=== PATIENT | male | born 1950 | race Caucasian/White ===

== ENCOUNTER 2017-09-29 12:42 | Inpatient (IN) | payer MEDICARE ==
--- NOTE | 2017-09-29 13:11 | EDM.PDOC ---
ED HPI GENERAL MEDICAL PROBLEM - General Chief Complaint: Respiratory Problem Stated Complaint: SOB, cough, cold sx Time Seen by Provider: 09/29/17 13:00 Source of Information: Reports: Patient History Limitations: Reports: No Limitations - History of Present Illness INITIAL COMMENTS - FREE TEXT/NARRATIVE: Ken is a pleasant 67 year old male with PMH of hypertension, who presents to the ED with c/o cough, fever, and shortness of breath. He reports that the past few days he has had a productive cough. Yesterday he did have a fever, as high as 102.6 deg F. Did have some chills at that time. Fever did improve with ibuprofen. He denies any fever today, but reports his shortness of breath seems to be worsening. He does admit to smoking 1 ppd for the past 50 years. Reports he has never formally been told he has COPD. At baseline, he denies shortness of breath at rest, but does have some dyspnea with exertion. He denies any chronic cough. Does also c/o a slight headache. He also reports he has not been eating or drinking much as he doesn't have much of an appetite. Denies any chest pain, dizziness, abdominal pain, N/V/D, urinary symptoms. ROS otherwise negative. He reports that he did take some Delsyn cough medication and benadryl , but they have not provided him any relief. Onset Date: 09/25/17 Duration: Getting Worse Location: Reports: Chest Improves with: Reports: None Worsens with: Reports: None Associated Symptoms: Reports: cough w sputum, Fever/Chills, Headaches, Loss of Appetite, Shortness of Breath, Weakness. Denies: Confusion, Chest Pain, Diaphoresis, Malaise, Nausea/Vomiting, Rash, Seizure, Syncope - Related Data Allergies Allergy/AdvReac Type Severity Reaction Status Date / Time No Known Allergies Allergy Verified 09/29/17 12:48 Home Meds: Home Meds Albuterol/Ipratropium [DuoNeb 3.0-0.5 MG/3 ML] 3 ml INH QID #30 neb 09/29/17 [Rx ] Allopurinol [Zyloprim] 300 mg PO DAILY 09/29/17 [History] Doxycycline Monohydrate [Avidoxy] 100 mg PO BID 7 Days #14 tablet 09/29/17 [Rx] Hydrochlorothiazide 12.5 mg PO DAILY 09/29/17 [History] Potassium Chloride [Klor-Con M20] 20 meq PO DAILY #30 tab.er 09/29/17 [Rx] Prednisone [IMW: predniSONE] 40 mg PO WITHBREAKFAST 5 Days #10 tab 09/29/17 [Rx] amLODIPine [Norvasc] 5 mg PO DAILY 09/29/17 [History] Past Medical History HEENT History: Reports: None Cardiovascular History: Reports: Hypertension Respiratory History: Reports: None Gastrointestinal History: Reports: None Genitourinary History: Reports: None Musculoskeletal History: Reports: Gout Neurological History: Reports: None Psychiatric History: Reports: None Endocrine/Metabolic History: Reports: None Hematologic History: Reports: None Immunologic History: Reports: None Oncologic (Cancer) History: Reports: None Dermatologic History: Reports: None - Past Surgical History Head Surgeries/Procedures: Reports: None HEENT Surgical History: Reports: None Cardiovascular Surgical History: Reports: None GI Surgical History: Reports: Hernia Repair/Other Male Surgical History: Reports: None Endocrine Surgical History: Reports: None Neurological Surgical History: Reports: None Musculoskeletal Surgical History: Reports: None Oncologic Surgical History: Reports: None Dermatological Surgical History: Reports: None Social & Family History - Tobacco Use Smoking Status *Q: Current Every Day Smoker Years of Tobacco use: 53 Packs/Tins Daily: 1 ED ROS GENERAL - Review of Systems Review Of Systems: ROS reveals no pertinent complaints other than HPI. Constitutional: Reports: Fever, Chills, Weakness, Fatigue, Decreased Appetite HEENT: Reports: Rhinitis, Sinus Problem. Denies: Ear Pain Respiratory: Reports: Shortness of Breath, Wheezing, Cough, Sputum. Denies: Pleuritic Chest Pain, Hemoptysis Cardiovascular: Reports: Dyspnea on Exertion. Denies: Chest Pain, Lightheadedness Endocrine: Reports: Fatigue GI/Abdominal: Reports: Decreased Appetite. Denies: Abdominal Pain, Diarrhea, Nausea, Vomiting : Reports: No Symptoms. Denies: Dysuria, Frequency, Urgency Musculoskeletal: Reports: No Symptoms Skin: Reports: No Symptoms Neurological: Reports: Headache. Denies: Confusion, Dizziness Psychiatric: Reports: No Symptoms Hematologic/Lymphatic: Reports: No Symptoms Immunologic: Reports: No Symptoms ED EXAM, GENERAL - Physical Exam Exam: See Below Exam Limited By: No Limitations General Appearance: Alert, WD/WN, No Apparent Distress Eye Exam: Bilateral Eye: EOMI, Normal Fundi, Normal Inspection, PERRL Ears: Normal External Exam, Normal Canal, Hearing Grossly Normal, Normal TMs Nose: Nasal Swelling, Nasal Drainage, Clear Rhinorrhea Throat/Mouth: Normal Inspection, Normal Lips, Normal Teeth, Normal Gums, Normal Oropharynx, Normal Voice, No Airway Compromise Head: Atraumatic, Normocephalic Neck: Normal Inspection, Supple, Non-Tender, Full Range of Motion Respiratory/Chest: No Respiratory Distress, No Accessory Muscle Use, Decreased Breath Sounds, Crackles, Wheezing, Prolonged Expiration Cardiovascular: Normal Peripheral Pulses, Regular Rate, Rhythm, No Edema, No Gallop, No JVD, No Murmur, No Rub Extremities: Normal Inspection, Normal Range of Motion, Non-Tender, Normal Capillary Refill, No Pedal Edema Neurological: Alert, Oriented, CN II-XII Intact, Normal Cognition, Normal Gait, Normal Reflexes, No Motor/Sensory Deficits Psychiatric: Normal Affect, Normal Mood Skin Exam: Warm, Dry, Intact, Normal Color, No Rash Lymphatic: No Adenopathy Course - Vital Signs Last Recorded V/S: Last Vital Signs Temp 98.8 F 09/29/17 12:49 Pulse 91 09/29/17 12:49 Resp 20 09/29/17 12:49 BP 162/99 H 09/29/17 12:49 Pulse Ox 93 L 09/29/17 12:49 - Orders/Labs/Meds Orders: Active Orders 24 hr Category Date Time Status Patient Status Manage Transfer [TRANSFER] Routine ADT 09/29/17 19:06 Ordered RT Aerosol Therapy [RC] ASDIRECTED Care 09/29/17 13:21 Active RT Aerosol Therapy [RC] ASDIRECTED Care 09/29/17 15:10 Active Telemetry Monitoring [Cardiac Monitoring] [RC] . Care 09/29/17 13:47 Active DIRECTED Chest 2V [CR] Stat Exams 09/29/17 13:05 Taken Resuscitation Status Routine Resus Stat 09/29/17 19:07 Ordered EKG 12 Lead [EK] Routine Ther 09/29/17 13:48 Ordered Labs: Laboratory Tests 09/29/17 09/29/17 09/29/17 Range/Units 13:10 13:10 13:10 WBC 9.1 (5.0-10.0) 10^3/uL RBC 5.20 (4.50-6.00) 10^6/uL Hgb 17.0 (14.0-18.0) g/dL Hct 48.0 (40.0-54.0) % MCV 92.3 (82.0-94.0) fL MCH 32.7 H (27.0-32.0) pg MCHC 35.4 (33.0-38.0) g/dL RDW Coeff of Spike 13.2 (11.0-15.0) % Plt Count 172 (150-400) 10^3/uL Neut % (Auto) 85.8 H (35-85) % Lymph % (Auto) 8.3 L (10-55) % [place] % (Auto) 5.8 (0-16) % Eos % (Auto) 0 (0-5) % Baso % (Auto) 0.1 (0-3) % Neut # (Auto) 7.81 H (1.80-7.00) 10^3/uL Lymph # (Auto) 0.76 L (1.00-4.80) 10^3/uL [place] # (Auto) 0.53 (0.00-0.80) 10^3/uL Eos # (Auto) 0.00 (0.00-0.45) 10^3/uL Baso # (Auto) 0.01 10^3/uL D-Dimer, Quantitative 0.64 H (0.00-0.50) Sodium (136-145) mEq/L Potassium (3.5-5.0) mEq/L Chloride (98-106) mEq/L Carbon Dioxide (21-32) mmol/L BUN (7-18) mg/dL Creatinine (0.7-1.3) mg/dL Est Cr Clr Drug Dosing mL/min Estimated GFR (MDRD) (>=60) mL/min Glucose (75-99) mg/dL Calcium (8.4-10.1) mg/dL Total Bilirubin (0.0-1.0) mg/dL AST (15-37) U/L ALT (12-78) U/L Alkaline Phosphatase (46-116) U/L Troponin I (0.00-0.06) ng/mL C-Reactive Protein 40.9 H (0.2-0.8) mg/dL NT-Pro-B Natriuret Pep (0-1000) pg/mL Total Protein (6.4-8.2) g/dL Albumin (3.4-5.0) g/dL 09/29/17 09/29/17 09/29/17 Range/Units 13:10 13:10 18:40 WBC (5.0-10.0) 10^3/uL RBC (4.50-6.00) 10^6/uL Hgb (14.0-18.0) g/dL Hct (40.0-54.0) % MCV (82.0-94.0) fL MCH (27.0-32.0) pg MCHC (33.0-38.0) g/dL RDW Coeff of Spike (11.0-15.0) % Plt Count (150-400) 10^3/uL Neut % (Auto) (35-85) % Lymph % (Auto) (10-55) % [place] % (Auto) (0-16) % Eos % (Auto) (0-5) % Baso % (Auto) (0-3) % Neut # (Auto) (1.80-7.00) 10^3/uL Lymph # (Auto) (1.00-4.80) 10^3/uL [place] # (Auto) (0.00-0.80) 10^3/uL Eos # (Auto) (0.00-0.45) 10^3/uL Baso # (Auto) 10^3/uL D-Dimer, Quantitative (0.00-0.50) Sodium 137 (136-145) mEq/L Potassium 2.3 L* D 2.9 L* D (3.5-5.0) mEq/L Chloride 94 L (98-106) mEq/L Carbon Dioxide 32 (21-32) mmol/L BUN 22 H D (7-18) mg/dL Creatinine 1.3 (0.7-1.3) mg/dL Est Cr Clr Drug Dosing 53.63 mL/min Estimated GFR (MDRD) 55 L (>=60) mL/min Glucose 113 H (75-99) mg/dL Calcium 8.8 (8.4-10.1) mg/dL Total Bilirubin 0.7 (0.0-1.0) mg/dL AST 43 H (15-37) U/L ALT 36 (12-78) U/L Alkaline Phosphatase 92 (46-116) U/L Troponin I < 0.017 (0.00-0.06) ng/mL C-Reactive Protein (0.2-0.8) mg/dL NT-Pro-B Natriuret Pep 271 (0-1000) pg/mL Total Protein 7.6 (6.4-8.2) g/dL Albumin 3.5 (3.4-5.0) g/dL Meds: Medications Discontinued Medications Generic Name Dose Route Start Last Admin Trade Name Freq PRN Reason Stop Dose Admin Albuterol/Ipratropium 3 ml 09/29/17 13:21 09/29/17 13:24 Duoneb 3.0-0.5 Mg/3 Ml NEB 09/29/17 13:22 3 ml ONETIME ONE Administration Albuterol/Ipratropium 3 ml 09/29/17 17:30 09/29/17 17:36 Duoneb 3.0-0.5 Mg/3 Ml NEB 09/29/17 17:31 3 ml ONETIME ONE Administration Ceftriaxone Sodium 1 gm 09/29/17 15:04 09/29/17 16:32 Rocephin IVPUSH 09/29/17 15:05 1 gm ONETIME ONE Administration Potassium Chloride 40 meq/ 100 mls @ 25 mls/hr 09/29/17 13:47 09/29/17 14:28 Premix IV 09/29/17 17:46 25 mls/hr ONETIME ONE Administration Sodium Chloride 1,000 mls @ 250 mls/hr 09/29/17 13:47 09/29/17 14:30 Normal Saline IV 09/29/17 17:46 250 mls/hr ONETIME ONE Administration Methylprednisolone Sodium Succinate 125 mg 09/29/17 15:15 Solu-Medrol IVPUSH STAT MELINA Methylprednisolone Sodium Succinate 125 mg 09/29/17 16:30 09/29/17 16:32 Solu-Medrol IVPUSH 09/29/17 16:31 125 mg STAT ONE Administration - Re-Assessments/Exams Free Text/Narrative Re-Assessment/Exam: 09/29/17 1400 Discussed lab results and CXR with patient. No obvious infiltrates on CXR. Does show hyperinflation suggestive of COPD. Will wait for final radiology report. WBC normal. Does have a critical potassium. BUN slightly elevated. CRP elevated to 40.9. Discussed that I would like to replace K with IV potassium. Will send down to same day for infusion. Patient and agreeable with plan. Patient does not wish to be admitted to hospital. Recheck K after infusion. K 2.9 after infusion. Discussed that I would prefer to keep him overnight and continue IVF with potassium and recheck in am. Patient agreed to be admitted. Will admit to observation. Patient's PCP is Sudhakar Gaines, so will admit to Dr. Alfonso. Recheck K in am. Departure - Departure Time of Disposition: 19:12 Disposition: Refer to Observation Condition: Fair Clinical Impression: COPD exacerbation, URI with cough and congestion, Hypokalemia - Discharge Information Prescriptions: Albuterol/Ipratropium [DuoNeb 3.0-0.5 MG/3 ML] 3 ml INH QID #30 neb Doxycycline Monohydrate [Avidoxy] 100 mg PO BID 7 Days #14 tablet Potassium Chloride [Klor-Con M20] 20 meq PO DAILY #30 tab.er Prednisone [IMW: predniSONE] 40 mg PO WITHBREAKFAST 5 Days #10 tab Instructions: Shortness of Breath, Adult, [id number], Chronic Obstructive Pulmonary Disease, [id number], Upper Respiratory Infection, Adult, Easy-to- Read Referrals: Kitty Gaines PA [Primary Care Provider] - Forms: ED Department Discharge - Problem List & Annotations (1) Hypertension SNOMED Code(s): 61622571 Code(s): I10 - ESSENTIAL (PRIMARY) HYPERTENSION Status: Acute Current Visit: Yes (2) COPD exacerbation SNOMED Code(s): 069338679 Code(s): J44.1 - CHRONIC OBSTRUCTIVE PULMONARY DISEASE W (ACUTE) EXACERBATION Status: Acute Current Visit: Yes (3) URI with cough and congestion SNOMED Code(s): 76079831 Code(s): J06.9 - ACUTE UPPER RESPIRATORY INFECTION, UNSPECIFIED Status: Acute Current Visit: Yes (4) Hypokalemia SNOMED Code(s): 19984397 Code(s): E87.6 - HYPOKALEMIA Status: Acute Current Visit: Yes - Problem List Review Problem List Initiated/Reviewed/Updated: Yes - My Orders Last 24 Hours: My Active Orders 09/29/17 13:05 Chest 2V [CR] Stat 09/29/17 13:21 RT Aerosol Therapy [RC] ASDIRECTED 09/29/17 13:47 Telemetry Monitoring [Cardiac Monitoring] [RC] . DIRECTED 09/29/17 13:48 EKG 12 Lead [EK] Routine 09/29/17 15:10 RT Aerosol Therapy [RC] ASDIRECTED 09/29/17 19:06 Patient Status Manage Transfer [TRANSFER] Routine 09/29/17 19:07 Resuscitation Status Routine - Assessment/Plan Admission H&P: Please use this note as an admission H&P Last 24 Hours: My Active Orders 09/29/17 13:05 Chest 2V [CR] Stat 09/29/17 13:21 RT Aerosol Therapy [RC] ASDIRECTED 09/29/17 13:47 Telemetry Monitoring [Cardiac Monitoring] [RC] . DIRECTED 09/29/17 13:48 EKG 12 Lead [EK] Routine 09/29/17 15:10 RT Aerosol Therapy [RC] ASDIRECTED 09/29/17 19:06 Patient Status Manage Transfer [TRANSFER] Routine 09/29/17 19:07 Resuscitation Status Routine Assessment:: COPD Exacerbation Hypokalemia HTN URI Plan: Admit to observation under Dr. Alfonso Cardiac monitoring IVF with KCL Duonebs Steroids IV Rocephin Recheck labs in am
[2017-09-29] MEDS ORDERED: Albuterol/Ipratropium 3.0-0.5 MG/3 ML Neb Soln NEB ONE ×2 (13:21→17:30)
[2017-09-29 13:39] LABS: CHLORIDE,CL 94 mEq/L (98-106); SODIUM,NA 137 mEq/L (136-145)
[2017-09-29] MEDS ORDERED: Sodium Chloride 0.9% 1,000 ML IV ONE ×2 (13:47→19:28)
[2017-09-29] MEDS ORDERED: Potassium Chloride 40 MEQ in Premix Bag 1 BAG IV ONE ×2 (13:47→19:28)
[2017-09-29] MEDS ORDERED: cefTRIAXone 1 GM Vial IVPUSH ONE (15:04)
[2017-09-29] MEDS ORDERED: methylPREDNISolone Sodium Succinate 125 MG/2 ML SDV IVPUSH SCH (15:15)
[2017-09-29] MEDS ORDERED: methylPREDNISolone Sodium Succinate 125 MG/2 ML SDV IVPUSH ONE (16:30)
[2017-09-29] MEDS ORDERED: Magnesium Hydroxide 400 MG/5 ML Susp 30 ML Cup PO PRN (19:28)
[2017-09-29] MEDS ORDERED: Ondansetron 4 MG/2 ML SDV IV PRN (19:28)
[2017-09-29] MEDS ORDERED: Temazepam 15 MG Cap PO PRN (19:28)
[2017-09-29] MEDS ORDERED: Acetaminophen 325 MG Tab PO PRN (19:28)
[2017-09-29] MEDS: Albuterol/Ipratropium 3.0-0.5 MG/3 ML Neb Soln NEB SCH (19:49)
[2017-09-29] MEDS: methylPREDNISolone Sodium Succinate 125 MG/2 ML SDV IVPUSH SCH (21:06)
[2017-09-30] MEDS: methylPREDNISolone Sodium Succinate 125 MG/2 ML SDV IVPUSH SCH ×2 (07:38→19:46)
[2017-09-30] MEDS: cefTRIAXone 1 GM Vial IVPUSH SCH (07:40)
[2017-09-30] MEDS: Albuterol/Ipratropium 3.0-0.5 MG/3 ML Neb Soln NEB SCH ×4 (07:40→19:46)
[2017-09-30 07:41] LABS: CHLORIDE,CL 100 mEq/L (98-106); SODIUM,NA 140 mEq/L (136-145)
[2017-09-30] MEDS ORDERED: Potassium Chloride 40 MEQ in Premix Bag 1 BAG IV ONE (08:14)
[2017-09-30] MEDS: Nicotine 14 MG/24 Hr Patch TRDERM SCH (09:18)
[2017-09-30] MEDS: Potassium Chloride 10 MEQ Tab.ER PO SCH (09:28)
[2017-09-30] MEDS ORDERED: Sodium Chloride 0.9% 250 ML ONE (09:32)
[2017-09-30] MEDS ORDERED: Sodium Chloride 0.9% 1,000 ML ONE (11:45)
--- NOTE | 2017-09-30 21:04 | PCM.PN ---
- General Info Date of Service: 09/30/17 Admission Dx/Problem (Free Text): COPD Exacerbation Hypokalemia Functional Status: Reports: Pain Controlled, Tolerating Diet, Ambulating - Review of Systems General: Reports: Fatigue. Denies: Fever, Weakness HEENT: Reports: No Symptoms Pulmonary: Reports: Shortness of Breath, Cough. Denies: Sputum Cardiovascular: Denies: Chest Pain, Edema Gastrointestinal: Denies: Abdominal Pain Genitourinary: Reports: No Symptoms Musculoskeletal: Reports: No Symptoms Skin: Reports: No Symptoms Neurological: Reports: No Symptoms - Patient Data Vitals - Most Recent: Last Vital Signs Temp 98.3 F 09/30/17 20:00 Pulse 80 09/30/17 20:00 Resp 20 09/30/17 20:00 BP 168/79 H 09/30/17 20:00 Pulse Ox 98 09/30/17 20:00 Weight - Most Recent: 163 lb 1.6 oz Lab Results Last 24 Hours: Laboratory Results - last 24 hr 09/30/17 09/30/17 09/30/17 Range/Units 06:56 07:17 14:50 Sodium 140 (136-145) mEq/L Potassium 2.7 L* 3.0 L (3.5-5.0) mEq/L Chloride 100 (98-106) mEq/L Carbon Dioxide 30 (21-32) mmol/L BUN 21 H (7-18) mg/dL Creatinine 1.1 (0.7-1.3) mg/dL Est Cr Clr Drug Dosing 63.38 mL/min Estimated GFR (MDRD) > 60 (>=60) mL/min Glucose 151 H D (75-99) mg/dL Calcium 8.1 L (8.4-10.1) mg/dL Magnesium 2.5 H (1.8-2.4) mg/dL C-Reactive Protein 23.3 H (0.2-0.8) mg/dL Med Orders - Current: Current Medications Acetaminophen (Tylenol) 650 mg PO Q4H PRN PRN Reason: Pain (Mild 1-3)/fever Albuterol/Ipratropium (Duoneb 3.0-0.5 Mg/3 Ml) 3 ml NEB QIDRT MELINA Last Admin: 09/30/17 19:46 Dose: 3 ml Ceftriaxone Sodium (Rocephin) 1 gm IVPUSH Q24H [facility] Last Admin: 09/30/17 07:40 Dose: 1 gm Magnesium Hydroxide (Milk Of Magnesia) 30 ml PO Q12H PRN PRN Reason: Constipation Methylprednisolone Sodium Succinate (Solu-Medrol) 62.5 mg IVPUSH Q12H [facility] Last Admin: 09/30/17 19:46 Dose: 62.5 mg Nicotine (Habitrol) 14 mg TRDERM DAILY [facility] Last Admin: 09/30/17 09:18 Dose: 14 mg Ondansetron HCl (Zofran) 4 mg IV Q6H PRN PRN Reason: Nausea/Vomiting Potassium Chloride (Klor-Con 10) 20 meq PO DAILY [facility] Last Admin: 09/30/17 09:28 Dose: 20 meq Temazepam (Restoril) 15 mg PO BEDTIME PRN PRN Reason: Sleep Discontinued Medications Albuterol/Ipratropium (Duoneb 3.0-0.5 Mg/3 Ml) 3 ml NEB ONETIME ONE Stop: 09/29/17 13:22 Last Admin: 09/29/17 13:24 Dose: 3 ml Albuterol/Ipratropium (Duoneb 3.0-0.5 Mg/3 Ml) 3 ml NEB ONETIME ONE Stop: 09/29/17 17:31 Last Admin: 09/29/17 17:36 Dose: 3 ml Ceftriaxone Sodium (Rocephin) 1 gm IVPUSH ONETIME ONE Stop: 09/29/17 15:05 Last Admin: 09/29/17 16:32 Dose: 1 gm Potassium Chloride 40 meq/ (Premix) 100 mls @ 25 mls/hr IV ONETIME ONE Stop: 09/29/17 17:46 Last Admin: 09/29/17 14:28 Dose: 25 mls/hr Sodium Chloride (Normal Saline) 1,000 mls @ 250 mls/hr IV ONETIME ONE Stop: 09/29/17 17:46 Last Admin: 09/29/17 14:30 Dose: 250 mls/hr Potassium Chloride 40 meq/ (Premix) 100 mls @ 10 mls/hr IV ONETIME ONE Stop: 09/30/17 05:27 Last Admin: 09/29/17 19:49 Dose: 10 mls/hr Sodium Chloride (Normal Saline) 1,000 mls @ 100 mls/hr IV ONETIME ONE Stop: 09/30/17 05:27 Last Admin: 09/29/17 19:50 Dose: 100 mls/hr Potassium Chloride 40 meq/ (Premix) 100 mls @ 25 mls/hr IV ONETIME ONE Stop: 09/30/17 12:13 Last Admin: 09/30/17 09:19 Dose: 25 mls/hr Sodium Chloride (Normal Saline) Confirm Administered Dose 250 mls @ as directed .ROUTE .STK-MED ONE Stop: 09/30/17 09:33 Last Admin: 09/30/17 09:29 Dose: 25 mls/hr Sodium Chloride (Normal Saline) Confirm Administered Dose 1,000 mls @ as directed .ROUTE .STK-MED ONE Stop: 09/30/17 11:46 Last Admin: 09/30/17 11:00 Dose: Not Given Methylprednisolone Sodium Succinate (Solu-Medrol) 125 mg IVPUSH STAT MELINA Methylprednisolone Sodium Succinate (Solu-Medrol) 125 mg IVPUSH STAT ONE Stop: 09/29/17 16:31 Last Admin: 09/29/17 16:32 Dose: 125 mg - Exam Quality Assessment: No: Supplemental Oxygen General: Alert, Oriented HEENT: Mucous Membr. Moist/[place] Neck: Supple Lungs: Decreased Breath Sounds, Wheezing Cardiovascular: Regular Rate, Regular Rhythm GI/Abdominal Exam: Normal Bowel Sounds, Soft, Non-Tender Extremities: Normal Inspection, No Pedal Edema Skin: Warm, Dry Neurological: No New Focal Deficit - Problem List & Annotations (1) Hypokalemia SNOMED Code(s): 75811418 Code(s): E87.6 - HYPOKALEMIA Status: Acute Priority: High Current Visit : Yes (2) COPD exacerbation SNOMED Code(s): 976770924 Code(s): J44.1 - CHRONIC OBSTRUCTIVE PULMONARY DISEASE W (ACUTE) EXACERBATION Status: Acute Priority: High Current Visit: Yes (3) Hypertension SNOMED Code(s): 54983117 Code(s): I10 - ESSENTIAL (PRIMARY) HYPERTENSION Status: Acute Priority: High Current Visit: Yes (4) URI with cough and congestion SNOMED Code(s): 05715540 Code(s): J06.9 - ACUTE UPPER RESPIRATORY INFECTION, UNSPECIFIED Status: Acute Priority: High Current Visit: Yes - Problem List Review Problem List Initiated/Reviewed/Updated: Yes - My Orders Last 24 Hours: My Active Orders 09/30/17 08:15 Potassium Chloride [Klor-Con 10] 20 meq PO DAILY 09/30/17 09:00 Nicotine [Habitrol] 14 mg TRDERM DAILY 10/01/17 05:11 BASIC METABOLIC PANEL,BMP [CHEM] AM C-REACTIVE PROTEIN [CHEM] AM - Assessment Assessment:: URI with COPD Exacerbation Hypokalemia - Plan Plan:: Patient admits that his breathing is better today, still coughing yet. Nonproductive. Oxygen sats are maintaining over 90%. Afebrile. Blood pressure stable this am with HCTZ on hold. Potassium still low at 2.7. CRP is improved , down to 22. Patient does admit he is somewhat anxious without his cigarettes. Is agreeable to a Nicotine patch. Will continue with IV antibiotics. DuoNebs. Will do another potassium bump now , start oral potassium as well. Repeat the labs later today. Possible discharge later today or in am.
[2017-10-01 07:32] LABS: CHLORIDE,CL 103 mEq/L (98-106); SODIUM,NA 142 mEq/L (136-145)
[2017-10-01] MEDS: Albuterol/Ipratropium 3.0-0.5 MG/3 ML Neb Soln NEB SCH ×4 (07:52→20:30)
[2017-10-01] MEDS: methylPREDNISolone Sodium Succinate 125 MG/2 ML SDV IVPUSH SCH ×2 (07:54→20:30)
[2017-10-01] MEDS: cefTRIAXone 1 GM Vial IVPUSH SCH (07:58)
[2017-10-01] MEDS: Nicotine 14 MG/24 Hr Patch TRDERM SCH (08:05)
[2017-10-01] MEDS: Potassium Chloride 10 MEQ Tab.ER PO SCH ×2 (08:05→20:31)
[2017-10-01] MEDS ORDERED: Potassium Chloride 40 MEQ in Premix Bag 1 BAG IV ONE (08:23)
[2017-10-01] MEDS ORDERED: Sodium Chloride 0.9% 1,000 ML IV ONE (09:00)
[2017-10-01] MEDS ORDERED: Allopurinol 300 MG Tab ONE (09:41)
[2017-10-01] MEDS ORDERED: amLODIPine 2.5 MG Tab ONE (09:42)
[2017-10-01] MEDS ORDERED: Sodium Chloride 0.9% 1,000 ML ONE (09:42)
[2017-10-01] MEDS: amLODIPine 2.5 MG Tab PO SCH (09:53)
[2017-10-01] MEDS: Allopurinol 300 MG Tab PO SCH (09:54)
[2017-10-01] MEDS: guaiFENesin 200 MG Tab PO SCH ×2 (14:02→20:30)
[2017-10-01] MEDS ORDERED: guaiFENesin 200 MG Tab ONE ×2 (14:15→19:18)
--- NOTE | 2017-10-01 22:05 | PCM.PN ---
- General Info Date of Service: 10/01/17 Admission Dx/Problem (Free Text): COPD Exacerbation Hypokalemia Functional Status: Reports: Pain Controlled, Tolerating Diet, Ambulating - Review of Systems General: Reports: Fatigue. Denies: Fever HEENT: Reports: Rhinitis Pulmonary: Reports: Shortness of Breath, Cough, Wheezing. Denies: Sputum Cardiovascular: Denies: Chest Pain, Edema, Lightheadedness Gastrointestinal: Reports: Vomiting. Denies: Abdominal Pain, Nausea Genitourinary: Reports: No Symptoms Musculoskeletal: Reports: No Symptoms Skin: Denies: No Symptoms Neurological: Reports: No Symptoms - Patient Data Vitals - Most Recent: Last Vital Signs Temp 97.8 F 10/01/17 20:00 Pulse 65 10/01/17 20:00 Resp 18 10/01/17 20:00 BP 159/81 H 10/01/17 20:00 Pulse Ox 98 10/01/17 20:00 Weight - Most Recent: 163 lb 1.6 oz Lab Results Last 24 Hours: Laboratory Results - last 24 hr 10/01/17 Range/Units 05:11 Sodium 142 (136-145) mEq/L Potassium 2.8 L* (3.5-5.0) mEq/L Chloride 103 (98-106) mEq/L Carbon Dioxide 29 (21-32) mmol/L BUN 22 H (7-18) mg/dL Creatinine 0.9 (0.7-1.3) mg/dL Est Cr Clr Drug Dosing 77.46 mL/min Estimated GFR (MDRD) > 60 (>=60) mL/min Glucose 145 H (75-99) mg/dL Calcium 8.0 L (8.4-10.1) mg/dL C-Reactive Protein 11.5 H (0.2-0.8) mg/dL Med Orders - Current: Current Medications Acetaminophen (Tylenol) 650 mg PO Q4H PRN PRN Reason: Pain (Mild 1-3)/fever Albuterol/Ipratropium (Duoneb 3.0-0.5 Mg/3 Ml) 3 ml NEB QIDRT [facility] Last Admin: 10/01/17 20:30 Dose: 3 ml Allopurinol (Zyloprim) 300 mg PO DAILY [facility] Last Admin: 10/01/17 09:54 Dose: 300 mg Amlodipine Besylate (Norvasc) 5 mg PO DAILY [facility] Last Admin: 10/01/17 09:53 Dose: 5 mg Ceftriaxone Sodium (Rocephin) 1 gm IVPUSH Q24H [facility] Last Admin: 10/01/17 07:58 Dose: 1 gm Guaifenesin (Organ-I Nr) 200 mg PO TID [facility] Last Admin: 10/01/17 20:30 Dose: 200 mg Magnesium Hydroxide (Milk Of Magnesia) 30 ml PO Q12H PRN PRN Reason: Constipation Methylprednisolone Sodium Succinate (Solu-Medrol) 62.5 mg IVPUSH Q12H [facility] Last Admin: 10/01/17 20:30 Dose: 62.5 mg Nicotine (Habitrol) 14 mg TRDERM DAILY [facility] Last Admin: 10/01/17 08:05 Dose: 14 mg Ondansetron HCl (Zofran) 4 mg IV Q6H PRN PRN Reason: Nausea/Vomiting Potassium Chloride (Klor-Con 10) 20 meq PO BID [facility] Last Admin: 10/01/17 20:31 Dose: 20 meq Temazepam (Restoril) 15 mg PO BEDTIME PRN PRN Reason: Sleep Discontinued Medications Albuterol/Ipratropium (Duoneb 3.0-0.5 Mg/3 Ml) 3 ml NEB ONETIME ONE Stop: 09/29/17 13:22 Last Admin: 09/29/17 13:24 Dose: 3 ml Albuterol/Ipratropium (Duoneb 3.0-0.5 Mg/3 Ml) 3 ml NEB ONETIME ONE Stop: 09/29/17 17:31 Last Admin: 09/29/17 17:36 Dose: 3 ml Ceftriaxone Sodium (Rocephin) 1 gm IVPUSH ONETIME ONE Stop: 09/29/17 15:05 Last Admin: 09/29/17 16:32 Dose: 1 gm Potassium Chloride 40 meq/ (Premix) 100 mls @ 25 mls/hr IV ONETIME ONE Stop: 09/29/17 17:46 Last Admin: 09/29/17 14:28 Dose: 25 mls/hr Sodium Chloride (Normal Saline) 1,000 mls @ 250 mls/hr IV ONETIME ONE Stop: 09/29/17 17:46 Last Admin: 09/29/17 14:30 Dose: 250 mls/hr Potassium Chloride 40 meq/ (Premix) 100 mls @ 10 mls/hr IV ONETIME ONE Stop: 09/30/17 05:27 Last Admin: 09/29/17 19:49 Dose: 10 mls/hr Sodium Chloride (Normal Saline) 1,000 mls @ 100 mls/hr IV ONETIME ONE Stop: 09/30/17 05:27 Last Admin: 09/29/17 19:50 Dose: 100 mls/hr Potassium Chloride 40 meq/ (Premix) 100 mls @ 25 mls/hr IV ONETIME ONE Stop: 09/30/17 12:13 Last Admin: 09/30/17 09:19 Dose: 25 mls/hr Sodium Chloride (Normal Saline) Confirm Administered Dose 250 mls @ as directed .ROUTE .STK-MED ONE Stop: 09/30/17 09:33 Last Admin: 09/30/17 09:29 Dose: 25 mls/hr Sodium Chloride (Normal Saline) Confirm Administered Dose 1,000 mls @ as directed .ROUTE .STK-MED ONE Stop: 09/30/17 11:46 Last Admin: 09/30/17 11:00 Dose: Not Given Potassium Chloride 40 meq/ (Premix) 100 mls @ 25 mls/hr IV ONETIME ONE Stop: 10/01/17 12:22 Last Admin: 10/01/17 09:48 Dose: 25 mls/hr Sodium Chloride (Normal Saline) 1,000 mls @ 125 mls/hr IV ONETIME ONE Stop: 10/01/17 16:59 Last Admin: 10/01/17 09:47 Dose: 125 mls/hr Methylprednisolone Sodium Succinate (Solu-Medrol) 125 mg IVPUSH STAT [facility] Methylprednisolone Sodium Succinate (Solu-Medrol) 125 mg IVPUSH STAT ONE Stop: 09/29/17 16:31 Last Admin: 09/29/17 16:32 Dose: 125 mg Potassium Chloride (Klor-Con 10) 20 meq PO DAILY [facility] Last Admin: 10/01/17 08:05 Dose: 20 meq - Exam General: Alert, Oriented HEENT: Mucous Membr. Moist/[place] Neck: Supple Lungs: Decreased Breath Sounds, Wheezing Cardiovascular: Regular Rate, Regular Rhythm GI/Abdominal Exam: Normal Bowel Sounds, Soft, Non-Tender Extremities: Normal Inspection, No Pedal Edema Skin: Warm, Dry Neurological: No New Focal Deficit - Problem List & Annotations (1) Hypokalemia SNOMED Code(s): 83954170 Code(s): E87.6 - HYPOKALEMIA Status: Acute Priority: High Current Visit : Yes (2) COPD exacerbation SNOMED Code(s): 561523307 Code(s): J44.1 - CHRONIC OBSTRUCTIVE PULMONARY DISEASE W (ACUTE) EXACERBATION Status: Acute Priority: High Current Visit: Yes (3) Hypertension SNOMED Code(s): 44301339 Code(s): I10 - ESSENTIAL (PRIMARY) HYPERTENSION Status: Acute Priority: High Current Visit: Yes (4) URI with cough and congestion SNOMED Code(s): 97783056 Code(s): J06.9 - ACUTE UPPER RESPIRATORY INFECTION, UNSPECIFIED Status: Acute Priority: High Current Visit: Yes - Problem List Review Problem List Initiated/Reviewed/Updated: Yes - My Orders Last 24 Hours: My Active Orders 10/01/17 08:45 Allopurinol [Zyloprim] 300 mg PO DAILY amLODIPine [Norvasc] 5 mg PO DAILY 10/01/17 14:00 guaiFENesin [Organ-I NR] 200 mg PO TID 10/01/17 20:00 Potassium Chloride [Klor-Con 10] 20 meq PO BID 10/02/17 05:11 BASIC METABOLIC PANEL,BMP [CHEM] AM C-REACTIVE PROTEIN [CHEM] AM - Assessment Assessment:: URI with COPD Exacerbation Hypokalemia - Plan Plan:: Patient admits that his breathing is better today, still coughing yet. Nonproductive. Oxygen sats are maintaining over 90%. Afebrile. Blood pressure stable this am with HCTZ on hold. Potassium still low at 2.7. CRP is improved , down to 22. Patient does admit he is somewhat anxious without his cigarettes. Is agreeable to a Nicotine patch. Will continue with IV antibiotics. DuoNebs. Will do another potassium bump now , start oral potassium as well. Repeat the labs later today. Possible discharge later today or in am. 10-01-2017 Patient states more short of breath today, chest feels tight. Wheezing more. Oxygen sats remain stable in the higher 90s. He does state his cough is more dry today, unable to expectorate with cough. Potassium low yet today at 2.8. CRP has improved petar to 11 today. Blood pressure somewhat higher this am, 168/ 79. Will transfer to inpatient status for ongoing treatment of his lungs/COPD. Continue with IV antibiotics and nebs. Solu Medrol. Will give additional IV potassium today, increase KDUR to BID. Restart Amlodipine. Repeat labs in am.
[2017-10-02] MEDS ORDERED: Allopurinol 300 MG Tab ONE (06:44)
[2017-10-02] MEDS ORDERED: amLODIPine 2.5 MG Tab ONE (06:45)
[2017-10-02] MEDS ORDERED: guaiFENesin 200 MG Tab ONE (06:45)
[2017-10-02 07:39] LABS: CHLORIDE,CL 105 mEq/L (98-106); SODIUM,NA 143 mEq/L (136-145)
[2017-10-02] MEDS: methylPREDNISolone Sodium Succinate 125 MG/2 ML SDV IVPUSH SCH ×2 (07:52→20:57)
[2017-10-02] MEDS: cefTRIAXone 1 GM Vial IVPUSH SCH (07:53)
[2017-10-02] MEDS: Nicotine 14 MG/24 Hr Patch TRDERM SCH (07:53)
[2017-10-02] MEDS: Albuterol/Ipratropium 3.0-0.5 MG/3 ML Neb Soln NEB SCH ×4 (07:54→20:57)
[2017-10-02] MEDS: Allopurinol 300 MG Tab PO SCH (07:55)
[2017-10-02] MEDS: Potassium Chloride 10 MEQ Tab.ER PO SCH ×2 (07:55→20:56)
[2017-10-02] MEDS: guaiFENesin 200 MG Tab PO SCH ×3 (07:55→20:56)
[2017-10-02] MEDS: amLODIPine 2.5 MG Tab PO SCH (07:56)
--- NOTE | 2017-10-02 17:43 | PCM.PN ---
- General Info Date of Service: 10/02/17 Admission Dx/Problem (Free Text): COPD Exacerbation Hypokalemia Functional Status: Reports: Pain Controlled, Tolerating Diet, Ambulating - Review of Systems General: Reports: Fatigue. Denies: Fever, Weakness HEENT: Reports: Rhinitis Pulmonary: Reports: Shortness of Breath, Cough, Wheezing. Denies: Sputum Cardiovascular: Denies: Chest Pain, Edema, Lightheadedness Gastrointestinal: Denies: Abdominal Pain, Nausea, Vomiting Genitourinary: Reports: No Symptoms Musculoskeletal: Reports: No Symptoms Skin: Reports: No Symptoms Neurological: Reports: No Symptoms - Patient Data Vitals - Most Recent: Last Vital Signs Temp 97.2 F 10/02/17 08:00 Pulse 60 10/02/17 08:00 Resp 20 10/02/17 08:00 BP 150/72 H 10/02/17 08:00 Pulse Ox 96 10/02/17 08:00 Weight - Most Recent: 163 lb 1.6 oz Lab Results Last 24 Hours: Laboratory Results - last 24 hr 10/02/17 Range/Units 07:00 Sodium 143 (136-145) mEq/L Potassium 3.2 L (3.5-5.0) mEq/L Chloride 105 (98-106) mEq/L Carbon Dioxide 28 (21-32) mmol/L BUN 21 H (7-18) mg/dL Creatinine 0.9 (0.7-1.3) mg/dL Est Cr Clr Drug Dosing 77.46 mL/min Estimated GFR (MDRD) > 60 (>=60) mL/min Glucose 147 H (75-99) mg/dL Calcium 7.9 L (8.4-10.1) mg/dL C-Reactive Protein 5.1 H (0.2-0.8) mg/dL Med Orders - Current: Current Medications Acetaminophen (Tylenol) 650 mg PO Q4H PRN PRN Reason: Pain (Mild 1-3)/fever Albuterol/Ipratropium (Duoneb 3.0-0.5 Mg/3 Ml) 3 ml NEB QIDRT [facility] Last Admin: 10/02/17 16:32 Dose: 3 ml Allopurinol (Zyloprim) 300 mg PO DAILY [facility] Last Admin: 10/02/17 07:55 Dose: 300 mg Amlodipine Besylate (Norvasc) 5 mg PO DAILY [facility] Last Admin: 10/02/17 07:56 Dose: 5 mg Ceftriaxone Sodium (Rocephin) 1 gm IVPUSH Q24H [facility] Last Admin: 10/02/17 07:53 Dose: 1 gm Guaifenesin (Organ-I Nr) 200 mg PO TID [facility] Last Admin: 10/02/17 14:28 Dose: 200 mg Magnesium Hydroxide (Milk Of Magnesia) 30 ml PO Q12H PRN PRN Reason: Constipation Methylprednisolone Sodium Succinate (Solu-Medrol) 62.5 mg IVPUSH Q12H [facility] Last Admin: 10/02/17 07:52 Dose: 62.5 mg Nicotine (Habitrol) 14 mg TRDERM DAILY [facility] Last Admin: 10/02/17 07:53 Dose: 14 mg Ondansetron HCl (Zofran) 4 mg IV Q6H PRN PRN Reason: Nausea/Vomiting Potassium Chloride (Klor-Con 10) 20 meq PO BID [facility] Last Admin: 10/02/17 07:55 Dose: 20 meq Temazepam (Restoril) 15 mg PO BEDTIME PRN PRN Reason: Sleep Discontinued Medications Albuterol/Ipratropium (Duoneb 3.0-0.5 Mg/3 Ml) 3 ml NEB ONETIME ONE Stop: 09/29/17 13:22 Last Admin: 09/29/17 13:24 Dose: 3 ml Albuterol/Ipratropium (Duoneb 3.0-0.5 Mg/3 Ml) 3 ml NEB ONETIME ONE Stop: 09/29/17 17:31 Last Admin: 09/29/17 17:36 Dose: 3 ml Allopurinol (Zyloprim) Confirm Administered Dose 300 mg .ROUTE .STK-MED ONE Stop: 10/01/17 09:42 Last Admin: 10/02/17 10:54 Dose: Not Given Allopurinol (Zyloprim) Confirm Administered Dose 300 mg .ROUTE .STK-MED ONE Stop: 10/02/17 06:45 Last Admin: 10/02/17 10:54 Dose: Not Given Amlodipine Besylate (Norvasc) Confirm Administered Dose 5 mg .ROUTE .STK-MED ONE Stop: 10/01/17 09:43 Last Admin: 10/02/17 10:54 Dose: Not Given Amlodipine Besylate (Norvasc) Confirm Administered Dose 5 mg .ROUTE .STK-MED ONE Stop: 10/02/17 06:46 Last Admin: 10/02/17 10:54 Dose: Not Given Ceftriaxone Sodium (Rocephin) 1 gm IVPUSH ONETIME ONE Stop: 09/29/17 15:05 Last Admin: 09/29/17 16:32 Dose: 1 gm Guaifenesin (Organ-I Nr) Confirm Administered Dose 200 mg .ROUTE .STK-MED ONE Stop: 10/01/17 14:16 Last Admin: 10/02/17 10:54 Dose: Not Given Guaifenesin (Organ-I Nr) Confirm Administered Dose 200 mg .ROUTE .STK-MED ONE Stop: 10/01/17 19:19 Last Admin: 10/02/17 10:54 Dose: Not Given Guaifenesin (Organ-I Nr) Confirm Administered Dose 200 mg .ROUTE .STK-MED ONE Stop: 10/02/17 06:46 Last Admin: 10/02/17 10:55 Dose: Not Given Potassium Chloride 40 meq/ (Premix) 100 mls @ 25 mls/hr IV ONETIME ONE Stop: 09/29/17 17:46 Last Admin: 09/29/17 14:28 Dose: 25 mls/hr Sodium Chloride (Normal Saline) 1,000 mls @ 250 mls/hr IV ONETIME ONE Stop: 09/29/17 17:46 Last Admin: 09/29/17 14:30 Dose: 250 mls/hr Potassium Chloride 40 meq/ (Premix) 100 mls @ 10 mls/hr IV ONETIME ONE Stop: 09/30/17 05:27 Last Admin: 09/29/17 19:49 Dose: 10 mls/hr Sodium Chloride (Normal Saline) 1,000 mls @ 100 mls/hr IV ONETIME ONE Stop: 09/30/17 05:27 Last Admin: 09/29/17 19:50 Dose: 100 mls/hr Potassium Chloride 40 meq/ (Premix) 100 mls @ 25 mls/hr IV ONETIME ONE Stop: 09/30/17 12:13 Last Admin: 09/30/17 09:19 Dose: 25 mls/hr Sodium Chloride (Normal Saline) Confirm Administered Dose 250 mls @ as directed .ROUTE .STK-MED ONE Stop: 09/30/17 09:33 Last Admin: 09/30/17 09:29 Dose: 25 mls/hr Sodium Chloride (Normal Saline) Confirm Administered Dose 1,000 mls @ as directed .ROUTE .STK-MED ONE Stop: 09/30/17 11:46 Last Admin: 09/30/17 11:00 Dose: Not Given Potassium Chloride 40 meq/ (Premix) 100 mls @ 25 mls/hr IV ONETIME ONE Stop: 10/01/17 12:22 Last Admin: 10/01/17 09:48 Dose: 25 mls/hr Sodium Chloride (Normal Saline) 1,000 mls @ 125 mls/hr IV ONETIME ONE Stop: 10/01/17 16:59 Last Admin: 10/01/17 09:47 Dose: 125 mls/hr Sodium Chloride (Normal Saline) Confirm Administered Dose 1,000 mls @ as directed .ROUTE .STK-MED ONE Stop: 10/01/17 09:43 Last Admin: 10/02/17 10:54 Dose: Not Given Methylprednisolone Sodium Succinate (Solu-Medrol) 125 mg IVPUSH STAT [facility] Methylprednisolone Sodium Succinate (Solu-Medrol) 125 mg IVPUSH STAT ONE Stop: 09/29/17 16:31 Last Admin: 09/29/17 16:32 Dose: 125 mg Potassium Chloride (Klor-Con 10) 20 meq PO DAILY [facility] Last Admin: 10/01/17 08:05 Dose: 20 meq - Exam General: Alert, Oriented HEENT: Mucous Membr. Moist/[place] Neck: Supple Lungs: Decreased Breath Sounds, Wheezing Cardiovascular: Regular Rate, Regular Rhythm GI/Abdominal Exam: Normal Bowel Sounds, Soft, Non-Tender Extremities: Normal Inspection, No Pedal Edema Skin: Warm, Dry Neurological: No New Focal Deficit Psy/Mental Status: Anxious - Problem List & Annotations (1) Hypokalemia SNOMED Code(s): 37559661 Code(s): E87.6 - HYPOKALEMIA Status: Acute Priority: High Current Visit : Yes (2) COPD exacerbation SNOMED Code(s): 048877300 Code(s): J44.1 - CHRONIC OBSTRUCTIVE PULMONARY DISEASE W (ACUTE) EXACERBATION Status: Acute Priority: High Current Visit: Yes (3) Hypertension SNOMED Code(s): 48722182 Code(s): I10 - ESSENTIAL (PRIMARY) HYPERTENSION Status: Acute Priority: High Current Visit: Yes (4) URI with cough and congestion SNOMED Code(s): 75631071 Code(s): J06.9 - ACUTE UPPER RESPIRATORY INFECTION, UNSPECIFIED Status: Acute Priority: High Current Visit: Yes - Problem List Review Problem List Initiated/Reviewed/Updated: Yes - My Orders Last 24 Hours: My Active Orders 10/01/17 20:00 Potassium Chloride [Klor-Con 10] 20 meq PO BID 10/03/17 05:11 BASIC METABOLIC PANEL,BMP [CHEM] AM C-REACTIVE PROTEIN [CHEM] AM - Assessment Assessment:: URI with COPD Exacerbation Hypokalemia - Plan Plan:: Patient admits that his breathing is better today, still coughing yet. Nonproductive. Oxygen sats are maintaining over 90%. Afebrile. Blood pressure stable this am with HCTZ on hold. Potassium still low at 2.7. CRP is improved , down to 22. Patient does admit he is somewhat anxious without his cigarettes. Is agreeable to a Nicotine patch. Will continue with IV antibiotics. DuoNebs. Will do another potassium bump now , start oral potassium as well. Repeat the labs later today. Possible discharge later today or in am. 10-01-2017 Patient states more short of breath today, chest feels tight. Wheezing more. Oxygen sats remain stable in the higher 90s. He does state his cough is more dry today, unable to expectorate with cough. Potassium low yet today at 2.8. CRP has improved petar to 11 today. Blood pressure somewhat higher this am, 168/ 79. Will transfer to inpatient status for ongoing treatment of his lungs/COPD. Continue with IV antibiotics and nebs. Solu Medrol. Will give additional IV potassium today, increase KDUR to BID. Restart Amlodipine. Repeat labs in am. 10-02-2017 Patient relates he had a restless night, more trouble with shortness of breath. Seems better this am. Continues to have nonproductive cough. Admits to feeling more anxious today. Blood pressure mildly elevated at 150s/70s. Potassium improved today to 3.2. CRP decreased to 5.1. will continue with current treatment plan and increase Amlodipine to 10 mg daily as we have continued to hold his HCTZ. Repeat labs in am. Probable discharge home tomorrow.
[2017-10-02] MEDS ORDERED: Fluconazole/Normal Saline 100 MG in Premix Bag 1 BAG IV SCH (20:00)
[2017-10-03 07:23] LABS: CHLORIDE,CL 104 mEq/L (98-106); SODIUM,NA 141 mEq/L (136-145)
[2017-10-03] MEDS: methylPREDNISolone Sodium Succinate 125 MG/2 ML SDV IVPUSH SCH ×2 (08:13→19:46)
[2017-10-03] MEDS: cefTRIAXone 1 GM Vial IVPUSH SCH (08:13)
[2017-10-03] MEDS: Albuterol/Ipratropium 3.0-0.5 MG/3 ML Neb Soln NEB SCH ×4 (08:14→19:46)
[2017-10-03] MEDS: guaiFENesin 200 MG Tab PO SCH ×3 (08:14→19:46)
[2017-10-03] MEDS: Allopurinol 300 MG Tab PO SCH (08:14)
[2017-10-03] MEDS: amLODIPine 10 MG Tab PO SCH (08:14)
[2017-10-03] MEDS: Nicotine 14 MG/24 Hr Patch TRDERM SCH (08:14)
[2017-10-03] MEDS: Potassium Chloride 10 MEQ Tab.ER PO SCH ×2 (08:15→19:46)
--- NOTE | 2017-10-03 08:52 | PCM.PN ---
- General Info Date of Service: 10/03/17 Admission Dx/Problem (Free Text): COPD Exacerbation Hypokalemia Functional Status: Reports: Pain Controlled, Tolerating Diet, Ambulating - Review of Systems General: Reports: Fatigue. Denies: Fever, Weakness HEENT: Reports: Other (patient has evidence of thrush in his mouth. 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 Dr. Porter over to see patient this am for the growth. ) Pulmonary: Reports: Shortness of Breath, Cough, Wheezing Cardiovascular: Denies: Chest Pain, Edema, Lightheadedness Gastrointestinal: Reports: Other (hiccups). Denies: Abdominal Pain, Nausea, Vomiting Genitourinary: Reports: No Symptoms Musculoskeletal: Reports: No Symptoms Skin: Reports: No Symptoms Neurological: Reports: Headache - Patient Data Vitals - Most Recent: Last Vital Signs Temp 96.5 F 10/03/17 07:27 Pulse 63 10/03/17 07:27 Resp 20 10/03/17 07:27 BP 163/85 H 10/03/17 08:32 Pulse Ox 98 10/03/17 07:27 Weight - Most Recent: 163 lb 1.6 oz Lab Results Last 24 Hours: Laboratory Results - last 24 hr 10/03/17 Range/Units 07:01 Sodium 141 (136-145) mEq/L Potassium 3.4 L (3.5-5.0) mEq/L Chloride 104 (98-106) mEq/L Carbon Dioxide 29 (21-32) mmol/L BUN 23 H (7-18) mg/dL Creatinine 1.0 (0.7-1.3) mg/dL Est Cr Clr Drug Dosing 69.72 mL/min Estimated GFR (MDRD) > 60 (>=60) mL/min Glucose 149 H (75-99) mg/dL Calcium 8.0 L (8.4-10.1) mg/dL C-Reactive Protein 3.4 H (0.2-0.8) mg/dL Med Orders - Current: Current Medications Acetaminophen (Tylenol) 650 mg PO Q4H PRN PRN Reason: Pain (Mild 1-3)/fever Albuterol/Ipratropium (Duoneb 3.0-0.5 Mg/3 Ml) 3 ml NEB QIDRT [facility] Last Admin: 10/03/17 08:14 Dose: 3 ml Allopurinol (Zyloprim) 300 mg PO DAILY [facility] Last Admin: 10/03/17 08:14 Dose: 300 mg Amlodipine Besylate (Norvasc) 10 mg PO DAILY [facility] Last Admin: 10/03/17 08:14 Dose: 10 mg Ceftriaxone Sodium (Rocephin) 1 gm IVPUSH Q24H [facility] Last Admin: 10/03/17 08:13 Dose: 1 gm Guaifenesin (Organ-I Nr) 200 mg PO TID [facility] Last Admin: 10/03/17 08:14 Dose: 200 mg Magnesium Hydroxide (Milk Of Magnesia) 30 ml PO Q12H PRN PRN Reason: Constipation Methylprednisolone Sodium Succinate (Solu-Medrol) 62.5 mg IVPUSH Q12H [facility] Last Admin: 10/03/17 08:13 Dose: 62.5 mg Mupirocin (Bactroban Oint) 0 gm TOP BID [facility] Nicotine (Habitrol) 14 mg TRDERM DAILY [facility] Last Admin: 10/03/17 08:14 Dose: 14 mg Nystatin (Mycostatin) 5 ml PO QID [facility] Ondansetron HCl (Zofran) 4 mg IV Q6H PRN PRN Reason: Nausea/Vomiting Potassium Chloride (Klor-Con 10) 20 meq PO BID [facility] Last Admin: 10/03/17 08:15 Dose: 20 meq Temazepam (Restoril) 15 mg PO BEDTIME PRN PRN Reason: Sleep Discontinued Medications Albuterol/Ipratropium (Duoneb 3.0-0.5 Mg/3 Ml) 3 ml NEB ONETIME ONE Stop: 09/29/17 13:22 Last Admin: 09/29/17 13:24 Dose: 3 ml Albuterol/Ipratropium (Duoneb 3.0-0.5 Mg/3 Ml) 3 ml NEB ONETIME ONE Stop: 09/29/17 17:31 Last Admin: 09/29/17 17:36 Dose: 3 ml Allopurinol (Zyloprim) Confirm Administered Dose 300 mg .ROUTE .STK-MED ONE Stop: 10/01/17 09:42 Last Admin: 10/02/17 10:54 Dose: Not Given Allopurinol (Zyloprim) Confirm Administered Dose 300 mg .ROUTE .STK-MED ONE Stop: 10/02/17 06:45 Last Admin: 10/02/17 10:54 Dose: Not Given Amlodipine Besylate (Norvasc) 5 mg PO DAILY [facility] Last Admin: 10/02/17 07:56 Dose: 5 mg Amlodipine Besylate (Norvasc) Confirm Administered Dose 5 mg .ROUTE .STK-MED ONE Stop: 10/01/17 09:43 Last Admin: 10/02/17 10:54 Dose: Not Given Amlodipine Besylate (Norvasc) Confirm Administered Dose 5 mg .ROUTE .STK-MED ONE Stop: 10/02/17 06:46 Last Admin: 10/02/17 10:54 Dose: Not Given Ceftriaxone Sodium (Rocephin) 1 gm IVPUSH ONETIME ONE Stop: 09/29/17 15:05 Last Admin: 09/29/17 16:32 Dose: 1 gm Guaifenesin (Organ-I Nr) Confirm Administered Dose 200 mg .ROUTE .ST-MED ONE Stop: 10/01/17 14:16 Last Admin: 10/02/17 10:54 Dose: Not Given Guaifenesin (Organ-I Nr) Confirm Administered Dose 200 mg .ROUTE .STK-MED ONE Stop: 10/01/17 19:19 Last Admin: 10/02/17 10:54 Dose: Not Given Guaifenesin (Organ-I Nr) Confirm Administered Dose 200 mg .ROUTE .ST-MED ONE Stop: 10/02/17 06:46 Last Admin: 10/02/17 10:55 Dose: Not Given Potassium Chloride 40 meq/ (Premix) 100 mls @ 25 mls/hr IV ONETIME ONE Stop: 09/29/17 17:46 Last Admin: 09/29/17 14:28 Dose: 25 mls/hr Sodium Chloride (Normal Saline) 1,000 mls @ 250 mls/hr IV ONETIME ONE Stop: 09/29/17 17:46 Last Admin: 09/29/17 14:30 Dose: 250 mls/hr Potassium Chloride 40 meq/ (Premix) 100 mls @ 10 mls/hr IV ONETIME ONE Stop: 09/30/17 05:27 Last Admin: 09/29/17 19:49 Dose: 10 mls/hr Sodium Chloride (Normal Saline) 1,000 mls @ 100 mls/hr IV ONETIME ONE Stop: 09/30/17 05:27 Last Admin: 09/29/17 19:50 Dose: 100 mls/hr Potassium Chloride 40 meq/ (Premix) 100 mls @ 25 mls/hr IV ONETIME ONE Stop: 09/30/17 12:13 Last Admin: 09/30/17 09:19 Dose: 25 mls/hr Sodium Chloride (Normal Saline) Confirm Administered Dose 250 mls @ as directed .ROUTE .STK-MED ONE Stop: 09/30/17 09:33 Last Admin: 09/30/17 09:29 Dose: 25 mls/hr Sodium Chloride (Normal Saline) Confirm Administered Dose 1,000 mls @ as directed .ROUTE .STK-MED ONE Stop: 09/30/17 11:46 Last Admin: 09/30/17 11:00 Dose: Not Given Potassium Chloride 40 meq/ (Premix) 100 mls @ 25 mls/hr IV ONETIME ONE Stop: 10/01/17 12:22 Last Admin: 10/01/17 09:48 Dose: 25 mls/hr Sodium Chloride (Normal Saline) 1,000 mls @ 125 mls/hr IV ONETIME ONE Stop: 10/01/17 16:59 Last Admin: 10/01/17 09:47 Dose: 125 mls/hr Sodium Chloride (Normal Saline) Confirm Administered Dose 1,000 mls @ as directed .ROUTE .STK-MED ONE Stop: 10/01/17 09:43 Last Admin: 10/02/17 10:54 Dose: Not Given Fluconazole/Sodium Chloride (100 mg/ Premix) 50 mls @ 100 mls/hr IV Q24H [facility] Last Admin: 10/02/17 21:04 Dose: 100 mls/hr Methylprednisolone Sodium Succinate (Solu-Medrol) 125 mg IVPUSH STAT [facility] Methylprednisolone Sodium Succinate (Solu-Medrol) 125 mg IVPUSH STAT ONE Stop: 09/29/17 16:31 Last Admin: 09/29/17 16:32 Dose: 125 mg Potassium Chloride (Klor-Con 10) 20 meq PO DAILY [facility] Last Admin: 10/01/17 08:05 Dose: 20 meq - Exam General: Alert, Oriented HEENT: Mucous Membr. Moist/[place] Neck: Supple Lungs: Decreased Breath Sounds, Wheezing Cardiovascular: Regular Rate, Regular Rhythm GI/Abdominal Exam: Normal Bowel Sounds, Soft, Non-Tender Extremities: Normal Inspection, No Pedal Edema Skin: Warm, Dry Neurological: No New Focal Deficit - Problem List & Annotations (1) Hypokalemia SNOMED Code(s): 44378017 Code(s): E87.6 - HYPOKALEMIA Status: Acute Priority: High Current Visit : Yes (2) COPD exacerbation SNOMED Code(s): 652469148 Code(s): J44.1 - CHRONIC OBSTRUCTIVE PULMONARY DISEASE W (ACUTE) EXACERBATION Status: Acute Priority: High Current Visit: Yes (3) Hypertension SNOMED Code(s): 48512928 Code(s): I10 - ESSENTIAL (PRIMARY) HYPERTENSION Status: Acute Priority: High Current Visit: Yes (4) URI with cough and congestion SNOMED Code(s): 36289361 Code(s): J06.9 - ACUTE UPPER RESPIRATORY INFECTION, UNSPECIFIED Status: Acute Priority: High Current Visit: Yes - Problem List Review Problem List Initiated/Reviewed/Updated: Yes - My Orders Last 24 Hours: My Active Orders 10/03/17 08:00 amLODIPine [Norvasc] 10 mg PO DAILY 10/03/17 08:15 Mupirocin Oint [Bactroban Oint] See Dose Instructions TOP BID 10/03/17 12:00 Nystatin [Mycostatin] 5 ml PO QID - Assessment Assessment:: URI with COPD Exacerbation Hypokalemia - Plan Plan:: Patient admits that his breathing is better today, still coughing yet. Nonproductive. Oxygen sats are maintaining over 90%. Afebrile. Blood pressure stable this am with HCTZ on hold. Potassium still low at 2.7. CRP is improved , down to 22. Patient does admit he is somewhat anxious without his cigarettes. Is agreeable to a Nicotine patch. Will continue with IV antibiotics. DuoNebs. Will do another potassium bump now , start oral potassium as well. Repeat the labs later today. Possible discharge later today or in am. 10-01-2017 Patient states more short of breath today, chest feels tight. Wheezing more. Oxygen sats remain stable in the higher 90s. He does state his cough is more dry today, unable to expectorate with cough. Potassium low yet today at 2.8. CRP has improved down to 11 today. Blood pressure somewhat higher this am, 168/ 79. Will transfer to inpatient status for ongoing treatment of his lungs/COPD. Continue with IV antibiotics and nebs. Solu Medrol. Will give additional IV potassium today, increase KDUR to BID. Restart Amlodipine. Repeat labs in am. 10-02-2017 Patient relates he had a restless night, more trouble with shortness of breath. Seems better this am. Continues to have nonproductive cough. Admits to feeling more anxious today. Blood pressure mildly elevated at 150s/70s. Potassium improved today to 3.2. CRP decreased to 5.1. will continue with current treatment plan and increase Amlodipine to 10 mg daily as we have continued to hold his HCTZ. Repeat labs in am. Probable discharge home tomorrow. 10-03-2017 Patient is up and ambulatory but continues to feel short of breath. Wheezing is improved. Having ongoing issues with hiccups. Has a headache today. Blood pressure does continue to be elevated despite Amlodipine being increased last night. Potassium 3.4. CRP down to 3.4. Patient does have obvious thrush in his mouth, observed this last evening and gave him a dose of IV Diflucan. 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 Redness noted around nares. Dr. Porter in to evaluate that today. Suggests starting Bactroban for the possible staph around his nares. Nystatin swish and swallow started this am. Will keep an eye on his blood pressure today as may still need further adjustments of his meds. Encourage ambulation today, discharge home tomorrow if continues to improve.
[2017-10-03] MEDS: Mupirocin Oint 22 GM Tube TOP SCH ×2 (09:07→19:46)
[2017-10-03] MEDS: Nystatin Susp 100,000 Unit/ML 5 ML UD Cup PO SCH ×3 (11:45→19:46)
[2017-10-03] MEDS: Metoclopramide 10 MG Tab PO SCH ×2 (13:54→19:46)
--- NOTE | 2017-10-03 15:03 | PN ---
DATE: 10/03/2017 SUMMARY: Margoth Gaines has kindly asked me to see this gentleman with regard to oral lesions. He states that he has developed some rather filmy material along the area of his buccal mucosa. He states it is not uncomfortable. In addition to this, he states that he has had a lesion involving the palate beneath his denture for 30 years. He is not having any other aural symptoms. He states the symptoms began recently and had progressed a bit. His ENT review is otherwise negative. A careful examination of the neck, nose, oropharynx, and tympanic membranes reveal a fair amount of cerumen, which is somewhat obstructing the canals primarily on the left side. The skin around the external nose and vestibuli showed an inflammatory reaction that has a degree of redness, hyperemia with some crusting. The oral cavity has patchy areas scattered about the entire oral mucosa and tongue. The area of the palate measures 4 mm in diameter and has a granular type of an appearance. This appears to be either a papilloma that has undergone some chronic change. Since it has been present for 30 years according to him, primarily would observe it and if poses a problem, one surely can excise it. From the standpoint of the oral cavity, it looks as if this is probably a fungal component. I would definitely consider a possibility of using either nystatin oral suspension 5 mL, swish, gargle, and swallow q.i.d. Possibly the area over the nose being a vestibulitis should be treated with Bactroban ointment. I would apply the ointment about 4 times a day and try this and see if it is better. I appreciate the kind referral. [place]/REYES /[id number]
[2017-10-04] MEDS: Mupirocin Oint 22 GM Tube TOP SCH (07:35)
[2017-10-04] MEDS: Albuterol/Ipratropium 3.0-0.5 MG/3 ML Neb Soln NEB SCH (07:35)
[2017-10-04] MEDS: Nicotine 14 MG/24 Hr Patch TRDERM SCH (07:36)
[2017-10-04] MEDS: Potassium Chloride 10 MEQ Tab.ER PO SCH (07:37)
[2017-10-04] MEDS: amLODIPine 10 MG Tab PO SCH (07:38)
[2017-10-04] MEDS: Nystatin Susp 100,000 Unit/ML 5 ML UD Cup PO SCH (07:38)
[2017-10-04] MEDS: methylPREDNISolone Sodium Succinate 125 MG/2 ML SDV IVPUSH SCH (07:39)
[2017-10-04] MEDS: guaiFENesin 200 MG Tab PO SCH (07:39)
[2017-10-04] MEDS: Metoclopramide 10 MG Tab PO SCH (07:39)
[2017-10-04] MEDS: Allopurinol 300 MG Tab PO SCH (07:40)
[2017-10-04] MEDS: cefTRIAXone 1 GM Vial IVPUSH SCH (07:42)
--- NOTE | 2017-10-04 12:43 | PCM.DCSUM1 ---
Discharge Summary - Hospital Course Free Text/Narrative:: Patient admitted from ER with COPD exacerbation and hypokalemia. Initially was resistant to admission and an IV bump of potassium was given without great improvement as still remained low at 2.9. Started on IV Rocephin and Zithromax for URI. Potassium ordered IV with repeat labs to follow in am. CRP was elevated significantly on admit at 40.9. WBC 9.1. - Discharge Data Discharge Date: 10/04/17 Discharge Disposition: Home, Self-Care 01 Condition: Fair - Discharge Diagnosis/Problem(s) (1) Hypokalemia SNOMED Code(s): 13193828 ICD Code: E87.6 - HYPOKALEMIA Status: Resolved Priority: High (2) COPD exacerbation SNOMED Code(s): 685775273 ICD Code: J44.1 - CHRONIC OBSTRUCTIVE PULMONARY DISEASE W (ACUTE) EXACERBATION Status: Acute Priority: High (3) Hypertension SNOMED Code(s): 80703127 ICD Code: I10 - ESSENTIAL (PRIMARY) HYPERTENSION Status: Acute Priority: High (4) URI with cough and congestion SNOMED Code(s): 94319923 ICD Code: J06.9 - ACUTE UPPER RESPIRATORY INFECTION, UNSPECIFIED Status: Acute Priority: High - Patient Summary/Data Complications: none Hospital Course: Patient has had slow improvement of overall lung status since admission. Potassium has corrected itself with replacement and holding of HCTZ. He required IV potassium for 2 days while starting oral and his numbers have leveled out at 3.4. He did continue to be quite tight in his chest, wheezing has improved. Cough productive at onset, now dry. He has been ambulatory and tolerated well. BLood pressure is somewhat elevated yet, did ultimately increase his Norvasc to 10 mg every HS. May need to add additional meds later if remains elevated to replace the HCTZ once off steroids or have him continue to take potassium orally with it. He has been wearing a nicotine patch and is aware of the benefit to continue to remain smoke free. CRP did improve over stay, down to 3.4 yesterday. - Patient Instructions Diet: Usual Diet as Tolerated Activity: As Tolerated - Discharge Plan Prescriptions/Med Rec: Albuterol/Ipratropium [DuoNeb 3.0-0.5 MG/3 ML] 3 ml NEB QIDRT #28 neb amLODIPine Besylate [Norvasc] 10 mg PO DAILY #30 tablet Doxycycline Monohydrate [Avidoxy] 100 mg PO BID 7 Days #14 tablet Mupirocin Oint [Bactroban Oint] 1 applic TOP BID #1 tube Nicotine [Habitrol] 14 mg TRDERM DAILY #30 patch Nystatin [Mycostatin] 5 ml PO QID #120 ml Potassium Chloride [Klor-Con 10] 20 meq PO BID #14 tab.er Prednisone [IMW: predniSONE] 40 mg PO WITHBREAKFAST 5 Days #10 tab Home Medications: Home Meds Allopurinol [Zyloprim] 300 mg PO DAILY 09/29/17 [History] Doxycycline Monohydrate [Avidoxy] 100 mg PO BID 7 Days #14 tablet 09/29/17 [Rx] Prednisone [IMW: predniSONE] 40 mg PO WITHBREAKFAST 5 Days #10 tab 09/29/17 [Rx] Albuterol/Ipratropium [DuoNeb 3.0-0.5 MG/3 ML] 3 ml NEB QIDRT #28 neb 10/04/17 [ Rx] Mupirocin Oint [Bactroban Oint] 1 applic TOP BID #1 tube 10/04/17 [Rx] Nicotine [Habitrol] 14 mg TRDERM DAILY #30 patch 10/04/17 [Rx] Nystatin [Mycostatin] 5 ml PO QID #120 ml 10/04/17 [Rx] Potassium Chloride [Klor-Con 10] 20 meq PO BID #14 tab.er 10/04/17 [Rx] amLODIPine Besylate [Norvasc] 10 mg PO DAILY #30 tablet 10/04/17 [Rx] Patient Handouts: Shortness of Breath, Adult, [id number], Chronic Obstructive Pulmonary Disease, Hypokalemia, Chronic Obstructive Pulmonary Disease, [id number], Upper Respiratory Infection, Adult, [id number] Forms: ED Department Discharge Referrals: Kitty Gaines PA [Primary Care Provider] - (Follow up with Renee in one week. Lab prior to visit) - Discharge Summary/Plan Comment DC Time >30 min.: No Discharge Summary/Plan Comment: Discharge home Will start Doxycycline Prednisone for 5 more days DuoNebs for a week Potassium BID for a week Nystatin swish and swallow for 6 more days Will recheck labs and blood pressure back in clinic in one week. - General Info Date of Service: 10/04/17 Admission Dx/Problem (Free Text: COPD Exacerbation Hypokalemia Functional Status: Reports: Pain Controlled, Tolerating Diet, Ambulating - Review of Systems General: Denies: Fever, Weakness, Fatigue HEENT: Reports: Other (thrush has improved). Denies: Sinus Congestion, Rhinitis Pulmonary: Reports: Shortness of Breath, Cough. Denies: Wheezing Cardiovascular: Denies: Chest Pain, Edema, Lightheadedness Gastrointestinal: Denies: Abdominal Pain, Nausea, Vomiting Genitourinary: Reports: No Symptoms Musculoskeletal: Reports: No Symptoms Skin: Reports: No Symptoms Neurological: Reports: No Symptoms - Patient Data Vitals - Most Recent: Last Vital Signs Temp 96.5 F 10/04/17 07:15 Pulse 65 10/04/17 07:15 Resp 16 10/04/17 07:15 BP 154/87 H 10/04/17 07:38 Pulse Ox 96 10/04/17 07:15 Weight - Most Recent: 163 lb 1.6 oz Med Orders - Current: Current Medications Discontinued Medications Acetaminophen (Tylenol) 650 mg PO Q4H PRN PRN Reason: Pain (Mild 1-3)/fever Last Admin: 10/03/17 09:08 Dose: 650 mg Albuterol/Ipratropium (Duoneb 3.0-0.5 Mg/3 Ml) 3 ml NEB ONETIME ONE Stop: 09/29/17 13:22 Last Admin: 09/29/17 13:24 Dose: 3 ml Albuterol/Ipratropium (Duoneb 3.0-0.5 Mg/3 Ml) 3 ml NEB ONETIME ONE Stop: 09/29/17 17:31 Last Admin: 09/29/17 17:36 Dose: 3 ml Albuterol/Ipratropium (Duoneb 3.0-0.5 Mg/3 Ml) 3 ml NEB QIDRT [facility] Last Admin: 10/04/17 07:35 Dose: 3 ml Allopurinol (Zyloprim) 300 mg PO DAILY [facility] Last Admin: 10/04/17 07:40 Dose: 300 mg Allopurinol (Zyloprim) Confirm Administered Dose 300 mg .ROUTE .STK-MED ONE Stop: 10/01/17 09:42 Last Admin: 10/02/17 10:54 Dose: Not Given Allopurinol (Zyloprim) Confirm Administered Dose 300 mg .ROUTE .STK-MED ONE Stop: 10/02/17 06:45 Last Admin: 10/02/17 10:54 Dose: Not Given Amlodipine Besylate (Norvasc) 5 mg PO DAILY [facility] Last Admin: 10/02/17 07:56 Dose: 5 mg Amlodipine Besylate (Norvasc) Confirm Administered Dose 5 mg .ROUTE .STK-MED ONE Stop: 10/01/17 09:43 Last Admin: 10/02/17 10:54 Dose: Not Given Amlodipine Besylate (Norvasc) Confirm Administered Dose 5 mg .ROUTE .STK-MED ONE Stop: 10/02/17 06:46 Last Admin: 10/02/17 10:54 Dose: Not Given Amlodipine Besylate (Norvasc) 10 mg PO DAILY [facility] Last Admin: 10/04/17 07:38 Dose: 10 mg Ceftriaxone Sodium (Rocephin) 1 gm IVPUSH ONETIME ONE Stop: 09/29/17 15:05 Last Admin: 09/29/17 16:32 Dose: 1 gm Ceftriaxone Sodium (Rocephin) 1 gm IVPUSH Q24H [facility] Last Admin: 10/04/17 07:42 Dose: 1 gm Guaifenesin (Organ-I Nr) 200 mg PO TID [facility] Last Admin: 10/04/17 07:39 Dose: 200 mg Guaifenesin (Organ-I Nr) Confirm Administered Dose 200 mg .ROUTE .STK-MED ONE Stop: 10/01/17 14:16 Last Admin: 10/02/17 10:54 Dose: Not Given Guaifenesin (Organ-I Nr) Confirm Administered Dose 200 mg .ROUTE .STK-MED ONE Stop: 10/01/17 19:19 Last Admin: 10/02/17 10:54 Dose: Not Given Guaifenesin (Organ-I Nr) Confirm Administered Dose 200 mg .ROUTE .STK-MED ONE Stop: 10/02/17 06:46 Last Admin: 10/02/17 10:55 Dose: Not Given Potassium Chloride 40 meq/ (Premix) 100 mls @ 25 mls/hr IV ONETIME ONE Stop: 09/29/17 17:46 Last Admin: 09/29/17 14:28 Dose: 25 mls/hr Sodium Chloride (Normal Saline) 1,000 mls @ 250 mls/hr IV ONETIME ONE Stop: 09/29/17 17:46 Last Admin: 09/29/17 14:30 Dose: 250 mls/hr Potassium Chloride 40 meq/ (Premix) 100 mls @ 10 mls/hr IV ONETIME ONE Stop: 09/30/17 05:27 Last Admin: 09/29/17 19:49 Dose: 10 mls/hr Sodium Chloride (Normal Saline) 1,000 mls @ 100 mls/hr IV ONETIME ONE Stop: 09/30/17 05:27 Last Admin: 09/29/17 19:50 Dose: 100 mls/hr Potassium Chloride 40 meq/ (Premix) 100 mls @ 25 mls/hr IV ONETIME ONE Stop: 09/30/17 12:13 Last Admin: 09/30/17 09:19 Dose: 25 mls/hr Sodium Chloride (Normal Saline) Confirm Administered Dose 250 mls @ as directed .ROUTE .STK-MED ONE Stop: 09/30/17 09:33 Last Admin: 09/30/17 09:29 Dose: 25 mls/hr Sodium Chloride (Normal Saline) Confirm Administered Dose 1,000 mls @ as directed .ROUTE .STK-MED ONE Stop: 09/30/17 11:46 Last Admin: 09/30/17 11:00 Dose: Not Given Potassium Chloride 40 meq/ (Premix) 100 mls @ 25 mls/hr IV ONETIME ONE Stop: 10/01/17 12:22 Last Admin: 10/01/17 09:48 Dose: 25 mls/hr Sodium Chloride (Normal Saline) 1,000 mls @ 125 mls/hr IV ONETIME ONE Stop: 10/01/17 16:59 Last Admin: 10/01/17 09:47 Dose: 125 mls/hr Sodium Chloride (Normal Saline) Confirm Administered Dose 1,000 mls @ as directed .ROUTE .STK-MED ONE Stop: 10/01/17 09:43 Last Admin: 10/02/17 10:54 Dose: Not Given Fluconazole/Sodium Chloride (100 mg/ Premix) 50 mls @ 100 mls/hr IV Q24H [facility] Last Admin: 10/02/17 21:04 Dose: 100 mls/hr Magnesium Hydroxide (Milk Of Magnesia) 30 ml PO Q12H PRN PRN Reason: Constipation Methylprednisolone Sodium Succinate (Solu-Medrol) 125 mg IVPUSH STAT [facility] Methylprednisolone Sodium Succinate (Solu-Medrol) 125 mg IVPUSH STAT ONE Stop: 09/29/17 16:31 Last Admin: 09/29/17 16:32 Dose: 125 mg Methylprednisolone Sodium Succinate (Solu-Medrol) 62.5 mg IVPUSH Q12H [facility] Last Admin: 10/04/17 07:39 Dose: 62.5 mg Metoclopramide HCl (Reglan) 5 mg PO TID [facility] Last Admin: 10/04/17 07:39 Dose: 5 mg Mupirocin (Bactroban Oint) 0 gm TOP BID [facility] Last Admin: 10/04/17 07:35 Dose: 1 applic Nicotine (Habitrol) 14 mg TRDERM DAILY [facility] Last Admin: 10/04/17 07:36 Dose: 14 mg Nystatin (Mycostatin) 5 ml PO QID [facility] Last Admin: 10/04/17 07:38 Dose: 5 ml Ondansetron HCl (Zofran) 4 mg IV Q6H PRN PRN Reason: Nausea/Vomiting Potassium Chloride (Klor-Con 10) 20 meq PO DAILY [facility] Last Admin: 10/01/17 08:05 Dose: 20 meq Potassium Chloride (Klor-Con 10) 20 meq PO BID [facility] Last Admin: 10/04/17 07:37 Dose: 20 meq Temazepam (Restoril) 15 mg PO BEDTIME PRN PRN Reason: Sleep - Exam General: Reports: Alert, Oriented HEENT: Reports: Mucous Membr. Moist/[place], Other (much less white exudate noted) Neck: Reports: Supple Lungs: Reports: Clear to Auscultation, Normal Respiratory Effort Cardiovascular: Reports: Regular Rate, Regular Rhythm GI/Abdominal Exam: Normal Bowel Sounds, Soft, Non-Tender Extremities: Normal Inspection, No Pedal Edema Skin: Reports: Warm, Dry Neurological: Reports: No New Focal Deficit
== END 2017-10-04 10:05 | disposition home or self-care (01) | DRG 191 ==
LOC: CC.ED 12:42 → UNDOADMOB 19:07 → CC.MS 19:07 → UNDOADMOB 19:14 → CC.MS 19:14 → INTOOBSV 10-01 09:02 → OBSVTOIN 10-01 09:02 → UNDODISIN 10-04 10:05
PROVIDERS: ADMIT Nurse Practitioner Family; ATTEND Family Medicine
DX: J44.1 Chronic obstructive pulmonary disease with (acute) exacerbation (principal); B37.0 Candidal stomatitis; J06.9 Acute upper respiratory infection, unspecified; E87.6 Hypokalemia; F17.200 Nicotine dependence, unspecified, uncomplicated; I10 Essential (primary) hypertension; M10.9 Gout, unspecified; K13.4 Granuloma and granuloma-like lesions of oral mucosa; R53.83 Other fatigue; J31.0 Chronic rhinitis; R06.2 Wheezing; R53.1 Weakness; R05 Cough; R06.02 Shortness of breath; R50.9 Fever, unspecified; R51 Headache; F17.210 Nicotine dependence, cigarettes, uncomplicated; J34.89 Other specified disorders of nose and nasal sinuses; Z79.52 Long term (current) use of systemic steroids; Z79.899 Other long term (current) drug therapy
CPT/HCPCS: 36415 ×3; 71046; 80048 ×2; 80053; 83735; 83880; 84132 ×2; 84484; 85025; 85379; 86140 ×3; 94640 ×8; 96374; 96375; 99284; A9270 ×4; J0696 ×3; J2930 ×4; J3480 ×3; J7030 ×2; J7050; 96365; 96366; 96376; 99220; 99225; G0378; J1450

== ENCOUNTER 2019-01-19 08:57 | Emergency (ER) | payer MEDICARE, OTHER ==
--- NOTE | 2019-01-19 09:22 | EDM.PDOC ---
ED HPI GENERAL MEDICAL PROBLEM - General Chief Complaint: Gastrointestinal Problem Stated Complaint: black stools Time Seen by Provider: 01/19/19 09:07 Source of Information: Reports: Patient History Limitations: Reports: No Limitations - History of Present Illness INITIAL COMMENTS - FREE TEXT/NARRATIVE: This patient is a 68 year old male that presents to the ER with . Patient reports that on Saturday in the morning he had 3 BMs with loose stool that was black in color. Patient reports that then yesterday he had 3 BMs in the morning and they were a little more formed and not as black, but had black stools. He then reports that this morning he woke up and had 3 BMs that were barely black and formed regular stool. Patient reports that the blackness has improved each day back to his regular stool. Patient reports that his normal BM pattern is 3 BMs in the morning each day. The patient reports a very mild pain in the LLQ, but only when pushed on. He reports that no pain with sitting there. Patient denies pain with a BM. Patient denies taking any iron, pepto bismol, or any over the counter medications for this. Patient denies parra, dizziness, n, v, f, cp , soa more than usual from copd, bright red blood, painful hemorrhoids. Patient is alert and oriented. Patient reports they called his PCP, but could not get into see PCP until this afternoon. They felt that was waiting to long, [facility] [place], were instructed to go to the ER in [place] for evaluation. Onset Date: 01/10/19 Duration: Day(s): (2), Improving Severity: Mild Improves with: Reports: None Worsens with: Reports: None Associated Symptoms: Denies: Confusion, Chest Pain, Cough, cough w sputum, Diaphoresis, Fever/Chills, Headaches, Loss of Appetite, Malaise, Nausea/Vomiting , Rash, Seizure, Shortness of Breath, Syncope, Weakness Abdominal Pain Score (Numeric/FACES): 1 - Related Data Allergies Allergy/AdvReac Type Severity Reaction Status Date / Time No Known Allergies Allergy Verified 01/19/19 08:57 Home Meds: Home Meds Allopurinol [Zyloprim] 300 mg PO DAILY 09/29/17 [History] Aspirin 81 mg PO DAILY 01/19/19 [History] Budesonide/Formoterol [Symbicort 80-4.5 MCG] 1 inh INH BID 01/19/19 [History] Losartan/Hydrochlorothiazide [Losartan-HCTZ 50-12.5 MG] 1 tab PO DAILY 01/19/19 [History] Pantoprazole Sodium [Protonix] 40 mg PO DAILY #14 tablet. 01/19/19 [Rx] Potassium Chloride [Klor-Con 10] 20 meq PO DAILY 01/19/19 [History] amLODIPine Besylate [Norvasc] 5 mg PO DAILY 01/19/19 [History] Past Medical History HEENT History: Reports: None Cardiovascular History: Reports: Hypertension Respiratory History: Reports: None Gastrointestinal History: Reports: None Genitourinary History: Reports: None Musculoskeletal History: Reports: Gout Neurological History: Reports: None Psychiatric History: Reports: None Endocrine/Metabolic History: Reports: None Hematologic History: Reports: None Immunologic History: Reports: None Oncologic (Cancer) History: Reports: None Dermatologic History: Reports: None - Past Surgical History Head Surgeries/Procedures: Reports: None HEENT Surgical History: Reports: None Cardiovascular Surgical History: Reports: None GI Surgical History: Reports: Hernia Repair/Other Male Surgical History: Reports: None Endocrine Surgical History: Reports: None Neurological Surgical History: Reports: None Musculoskeletal Surgical History: Reports: None Oncologic Surgical History: Reports: None Dermatological Surgical History: Reports: None ED ROS GENERAL - Review of Systems Review Of Systems: See Below Constitutional: Reports: No Symptoms HEENT: Reports: No Symptoms Respiratory: Reports: No Symptoms, Shortness of Breath (baseline, no more than usual with hx of COPD per patient. ) Cardiovascular: Reports: No Symptoms Endocrine: Reports: No Symptoms GI/Abdominal: Reports: Abdominal Pain, Black Stool : Reports: No Symptoms Musculoskeletal: Reports: No Symptoms Skin: Reports: No Symptoms Neurological: Reports: No Symptoms Psychiatric: Reports: No Symptoms Hematologic/Lymphatic: Reports: No Symptoms Immunologic: Reports: No Symptoms ED EXAM, GI/ABD - Physical Exam Exam: See Below Exam Limited By: No Limitations General Appearance: Alert, WD/WN, No Apparent Distress Eyes: Bilateral: Normal Appearance Ears: Normal External Exam, Normal Canal, Hearing Grossly Normal, Normal TMs Nose: Normal Inspection, Normal Mucosa, No Blood Throat/Mouth: Normal Inspection, Normal Lips, Normal Teeth, Normal Gums, Normal Oropharynx, Normal Voice, No Airway Compromise Head: Atraumatic, Normocephalic Neck: Normal Inspection, Supple, Non-Tender, Full Range of Motion Respiratory/Chest: No Respiratory Distress, Normal Breath Sounds, No Accessory Muscle Use, Rhonchi (all throughout. HX COPD. ) Cardiovascular: Normal Peripheral Pulses, No JVD, No Murmur GI/Abdominal Exam: Normal Bowel Sounds, Soft, No Organomegaly, No Distention, No Abnormal Bruit, No Mass, Pelvis Stable, Tender (LLQ, very mild on deep palpation. ) Rectal (Males) Exam: Normal Rectal Tone, Prostate Normal, Black Stool (very scant amount), Heme + Stool, Hemorrhoids (external, not bleeding. ). No: Perirectal Abscess, Tenderness Back Exam: Normal Inspection, Full Range of Motion. No: CVA Tenderness (L), CVA Tenderness (R) Extremities: Normal Inspection, Normal Range of Motion, Non-Tender, No Pedal Edema, Normal Capillary Refill Neurological: Alert, Oriented, Normal Cognition, Normal Gait, No Motor/Sensory Deficits Psychiatric: Normal Affect, Normal Mood Skin Exam: Warm, Dry, Intact, Normal Color, No Rash Lymphatic: No Adenopathy Course - Vital Signs Last Recorded V/S: Last Vital Signs Temp 96.7 F 01/19/19 09:04 Pulse 65 01/19/19 09:04 Resp 18 01/19/19 09:04 BP 117/62 01/19/19 09:04 Pulse Ox 100 01/19/19 09:04 - Orders/Labs/Meds Labs: Laboratory Tests 01/19/19 01/19/19 Range/Units 09:28 09:28 WBC 8.4 (5.0-10.0) 10^3/uL RBC 3.51 L (4.50-6.00) 10^6/uL Hgb 11.5 L (14.0-18.0) g/dL Hct 34.1 L (40.0-54.0) % MCV 97.2 H (82.0-94.0) fL MCH 32.8 H (27.0-32.0) pg MCHC 33.7 (33.0-38.0) g/dL RDW Coeff of Spike 12.9 (11.0-15.0) % Plt Count 222 (150-400) 10^3/uL Neut % (Auto) 71.6 (35-85) % Lymph % (Auto) 21.7 (10-55) % Hale % (Auto) 5.3 (0-16) % Eos % (Auto) 1.2 (0-5) % Baso % (Auto) 0.2 (0-3) % Neut # (Auto) 6.02 (1.80-7.00) 10^3/uL Lymph # (Auto) 1.83 (1.00-4.80) 10^3/uL Hale # (Auto) 0.45 (0.00-0.80) 10^3/uL Eos # (Auto) 0.10 (0.00-0.45) 10^3/uL Baso # (Auto) 0.02 10^3/uL Sodium 138 (136-145) mEq/L Potassium 3.9 (3.5-5.0) mEq/L Chloride 101 (98-106) mEq/L Carbon Dioxide 30 (21-32) mmol/L BUN 32 H D (7-18) mg/dL Creatinine 1.4 H (0.7-1.3) mg/dL Est Cr Clr Drug Dosing 49.10 mL/min Estimated GFR (MDRD) 50 L (>=60) mL/min Glucose 114 H (75-99) mg/dL Calcium 8.8 (8.4-10.1) mg/dL Total Bilirubin 0.7 (0.0-1.0) mg/dL AST 19 (15-37) U/L ALT 22 (12-78) U/L Alkaline Phosphatase 56 (46-116) U/L Total Protein 6.4 (6.4-8.2) g/dL Albumin 3.5 (3.4-5.0) g/dL - Re-Assessments/Exams Free Text/Narrative Re-Assessment/Exam: 01/19/19 10:30 does report the patient has been taking IbuProfen the last couple of weeks. [facility] since last labs here done about 15 months ago. The patient CR today is 1.4, his last CR done at the [facility] on 11/19/18 was 1.3, so minimal change from baseline. The patient hgb today in ER is 11.5, the last hgb done was at [facility] on 05/13/19 was 17.5. He has had a 6.0 drop in hgb since latest draw. The patient today in the emergency department only reports very mild LLQ pain only with deep palpation. He reports that his BMs are improving and becoming more normal/formed/less blackness. The patient denies vomiting and fever. Patient vital signs are stable. I spoke to Dr. Alfonso about this patient. He reports that we can discharge the patient home on Protonix PO, have him stop any NSAIDS, and have a upper and lower scope done on Saturday. I discussed with the patient and patient his results, my discussion with Dr Alfonso, and plan about scopes on Saturday. Both agree that this is a good plan. I explained to the patient about putting him on Protonix and stopping NSAIDS and ASA. Explained the risk of stopping ASA vs benefits with his GI bleed. He understands and agrees to stop his ASA and all NSAIDS. The patient and his was educated when to return and they voiced back understanding when to return to the ER emergently. I explained if bleeding comes back, black stools come back, vomiting , vomiting blood, dizziness, lightheaded, chest pain, shortness of breath, abdominal pain, pale, sweating, or any concerns at all. He is to return immediately! Both he and voice back understanding. Departure - Departure Time of Disposition: 10:38 Disposition: Home, Self-Care 01 Condition: Fair Clinical Impression: GI bleeding Qualifiers: GI bleed type/associated pathology: gastritis Gastritis type: unspecified gastritis Qualified Code(s): K29.71 - Gastritis, unspecified, with bleeding - Discharge Information *PRESCRIPTION DRUG MONITORING PROGRAM REVIEWED*: Not Applicable *COPY OF PRESCRIPTION DRUG MONITORING REPORT IN PATIENT MARGARITA: Not Applicable Prescriptions: Pantoprazole Sodium [Protonix] 40 mg PO DAILY #14 tablet. Instructions: Upper Gastrointestinal Bleeding Referrals: Mindi Crowell MD [Primary Care Provider] - Forms: ED Department Discharge Additional Instructions: Followup with Dr Alfonso Saturday for your scopes: They will call you Saturday or to schedule If you do not hear [facility] by by 2pm, please call [phone] to ask about your scheduled time Please follow the scope instructions given to you in ER by Nurse Amarilis Feng Protonix 40mg 1 pill once a day #14 no refill NO ASPIRIN OR IBUPROFEN, ALEVE until Dr. Alfonso says you can: If you have medication questions, please call [phone] and ask Increase fluids PLEASE RETURN TO THE ER IMMEDIATELY IF YOU EXPERIENCE CHEST PAIN, MORE THAN USUAL SHORTNESS OF BREATH, DIZZINESS, LIGHTHEADED, PASSING OUT, SWEATING, ABDOMINAL PAIN, VOMITING, VOMITING BLOOD, BLACK STOOLS INCREASE, BRIGHT RED BLOOD IN STOOLS, PALE SKIN, CONFUSION, OR ANY CONCERNS OR CHANGES AT ALL!!!!! - Assessment/Plan Plan: PLEASE SEE RN NOTE FOR PFSH. PLEASE USE ER H&P PROCEDURAL H&P
== END 2019-01-19 10:52 | disposition home or self-care (01) ==
LOC: CC.ED 08:57
DX: K29.71 Gastritis, unspecified, with bleeding (principal); I10 Essential (primary) hypertension; M10.9 Gout, unspecified; Z79.82 Long term (current) use of aspirin
CPT/HCPCS: 36415; 80053; 85025; 99284

== ENCOUNTER → 2019-01-23 | Day surgery (SDC) | payer MEDICARE, OTHER ==
[~2019-01-23] MED LIST: Lactated Ringers 1,000 ML IV SCH; Propofol 200 MG/20 ML SDV IV ONE
--- NOTE | 2019-01-26 08:25 | OR ---
DATE OF OPERATION: 01/23/2019 PREOPERATIVE DIAGNOSIS: GASTROINTESTINAL BLEED. POSTOPERATIVE DIAGNOSIS: 1. TWO LARGE HEALING GASTRIC ULCERS. 2. GASTRITIS/DUODENITIS. 3. SIGMOID DIVERTICULOSIS. 4. LARGE GREATER THAN 2.5 CM TUBULOVILLOUS ADENOMA, SIGMOID COLON. 5. SMALL VILLOUS ADENOMA, TRANSVERSE COLON. SURGEON: Alex Alfonso MD PROCEDURE: 1. EGD WITH BIOPSIES X7, OLGA. 2. A 0.5 CM VILLOUS ADENOMA, TRANSVERSE COLON. 3. BIOPSY X4 OF LARGE TUBULOVILLOUS LESION, DISTAL SIGMOID COLON. FINDINGS: 1. Full-length EGD. 2. Antral gastritis/duodenitis, mild. 3. Two large gastric ulcers in lesser curvature of fundus, nonbleeding. 4. Full-length colonoscopy. 5. Mild sigmoid diverticulosis. 6. Villous adenoma, mid transverse colon, approximately 0.5 cm. 7. Large tubulovillous lesion, distal sigmoid colon, around 35 cm. RECOMMENDATIONS: The patient will be treated appropriately for his peptic ulcer disease and recent GI bleed which was without a doubt the cause. He has a large lesion in his distal sigmoid colon which is likely dysplastic, but not invasive yet. He will need this consulted for by Surgery. The patient will be placed on proton pump therapy for his peptic ulcer disease and told to avoid NSAIDs and aspirin. He will need a surgical consultation as this massive polyp could not get a snare over the top of it and its base is quite big. We elected to biopsy it and he will need definitive care. We will make that arrangement. INDICATIONS: The patient was recently in the emergency room with a GI bleed. He had melenic stools likely from an upper GI source and he had never had prior endoscopy. The emergency room physician set him up for upper and lower scopes. DESCRIPTION OF PROCEDURE: The patient was prepped and draped, placed in the left lateral decubitus position. A lubricated Olympus gastroscope was inserted and advanced to cricopharyngeus area, easily intubated into the esophagus. The esophageal lining was benign in its entire course. The Z-line was sharp around 40 cm. There was 1 small little area that may represent a short segment Romero's and we did biopsy it, but it was minimal. The scope was advanced into the stomach through the pylorus and into the second portion of the duodenum. The second portion of duodenum was benign. The patient had some very mild duodenitis without ulceration. We did a biopsy of that. Likewise when the scope was brought back into the stomach and retroflexed, the upper fundus and cardia were unremarkable. The patient does have 2 large deep peptic ulcers along the lesser curvature, biopsied each of them x2. There was no active bleeding from them, they had nice exudative bases. Most of the antrum, especially in the peripyloric area was inflamed with gastritis. Two biopsies were taken along with a OLGA. Air was then suctioned from the stomach and the scope was removed without complication. A lubricated Olympus colonoscope was then inserted and with ease advanced to the cecum. We were able to directly visualize the ileocecal valve and appendiceal orifice. The bowel prep was excellent. Upon withdrawal, the cecum and ascending colon were benign. In the mid transverse colon, the patient had a small villous adenoma approximately 0.5 cm in size removed with a snare and suctioned into polyp trap #1 without difficulty. The rest of the transverse and descending colons were unremarkable. The patient did have scattered diverticula throughout the entire sigmoid and rectosigmoid region, mild in severity without any inflammatory change. No signs of any colitis or active bleeding. Around 35 cm, the patient has a very large tubulovillous lesion with it which was stalked, however, it was quite thick at the bottom of the stalk. We could not get a snare over the top of this, it occupied most of the colon and very difficult to visualize, and due to its size, we felt it unsafe to remove in [place]. We did do 4 biopsies of this without complication. The rectosigmoid junction and rectal vault were otherwise benign. Retroflexion of the scope in the rectum showed no anal lesions. Air was suctioned, the scope removed without complication. ROHAN/REYES /[id number]
== END ==
LOC: CC.SDS 08:28
PROVIDERS: ATTEND Family Medicine
DX: K57.31 Diverticulosis of large intestine without perforation or abscess with bleeding (principal); K29.51 Unspecified chronic gastritis with bleeding; K25.4 Chronic or unspecified gastric ulcer with hemorrhage; D12.3 Benign neoplasm of transverse colon; D12.5 Benign neoplasm of sigmoid colon; K63.5 Polyp of colon; K20.9 Esophagitis, unspecified; B96.81 Helicobacter pylori [H. pylori] as the cause of diseases classified elsewhere; K31.89 Other diseases of stomach and duodenum; I10 Essential (primary) hypertension; M10.9 Gout, unspecified; Z79.82 Long term (current) use of aspirin; Z79.51 Long term (current) use of inhaled steroids; Z79.899 Other long term (current) drug therapy
CPT/HCPCS: 45385; 87081; J2704; J7120

== ENCOUNTER → 2019-03-13 | Day surgery (SDC) | payer MEDICARE ==
--- NOTE | 2019-03-13 11:13 | OR ---
DATE OF OPERATION: 03/13/2019 PREOPERATIVE DIAGNOSIS: GASTRIC ULCERS. POSTOPERATIVE DIAGNOSIS: HEALED GASTRIC ULCERS. SURGEON: Alex Alfonso MD PROCEDURE: SURVEILLANCE EGD. ANESTHESIA: MAC. COMPLICATIONS: None. SPECIMEN: None. FINDINGS: Completely healed fundal ulcers and gastritis. RECOMMENDATIONS: Ongoing avoidance of NSAIDs. INDICATIONS: The patient was seen approximately 6 weeks ago where he had a GI bleed. He had 2 large gastric ulcers along the lesser curvature of the fundus and a significant gastritis of the antrum. He is in for routine followup. DESCRIPTION OF PROCEDURE: The patient was prepped and draped, placed in the left lateral decubitus position. A lubricated Olympus gastroscope was inserted over a bit, advanced to cricopharyngeus area, and easily intubated into the esophagus. The esophageal lining was benign in its entire course. Z-line crisp and sharp at 40 cm. The distal esophagus was benign without any obvious signs of reflux. The scope was advanced into the stomach, through the pylorus, and into the second portion of the duodenum. This and the duodenal bulb were completely benign. The scope was brought back into the stomach and retroflexed. The upper fundus and cardia were unremarkable. Upon straightening, a thorough evaluation of the fundus and antrum showed complete resolution of any and all signs of peptic ulcer disease. There was no further evidence of peptic ulcers. No signs of gastritis. Air was suctioned from the stomach. The scope removed without complication. ROHAN/REYES /[id number]
== END ==
LOC: CC.SDS 09:38
PROVIDERS: ATTEND Family Medicine
DX: Z09 Encounter for follow-up examination after completed treatment for conditions other than malignant neoplasm (principal); K21.9 Gastro-esophageal reflux disease without esophagitis; I10 Essential (primary) hypertension; J44.9 Chronic obstructive pulmonary disease, unspecified; Z79.899 Other long term (current) drug therapy; Z79.82 Long term (current) use of aspirin; Z87.891 Personal history of nicotine dependence
CPT/HCPCS: 43235; J2704; J7120

== ENCOUNTER 2020-02-20 16:50 | Emergency (ER) | payer MEDICARE ==
[2020-02-20] MEDS ORDERED: Cyclobenzaprine 10 MG Tab PO ONE (16:51)
[2020-02-20] MEDS ORDERED: predniSONE 20 MG Tab PO ONE (16:51)
--- NOTE | 2020-02-20 17:23 | EDM.PDOC ---
ED HPI GENERAL MEDICAL PROBLEM - General Chief Complaint: General Stated Complaint: right lower back pain Time Seen by Provider: 02/20/20 17:00 Source of Information: Reports: Patient History Limitations: Reports: No Limitations - History of Present Illness INITIAL COMMENTS - FREE TEXT/NARRATIVE: Patient to the emergency department today complaining of some lower back pain more in the right side. The patient denies any injury or trauma. The patient was seen by Dr. alfonso earlier this week and had a x-ray that did not show any acute pathology. The patient was given a prescription for tramadol and the patient advised that that is not helping. The patient was also referred to physical therapy did have a physical therapy session without relief of symptoms. The patient denies any problems voiding or having a bowel movement. He denies any numbness in his back or going into his extremities he denies any perianal rectal numbness. He denies any other symptoms Onset: Today Duration: Other (Patient complaint of the symptoms have been going on for months and becoming more worse.) Location: Reports: Back Quality: Reports: Ache Severity: Severe Improves with: Reports: None Worsens with: Reports: Movement Associated Symptoms: Denies: Chest Pain, Fever/Chills, Nausea/Vomiting, Shortness of Breath, Weakness Treatments [employer]: Reports: Other (see below) (As above) - Related Data Allergies Allergy/AdvReac Type Severity Reaction Status Date / Time No Known Allergies Allergy Verified 02/20/20 17:32 Home Meds: Home Meds allopurinoL [Zyloprim] 300 mg PO DAILY 09/29/17 [History] Budesonide/Formoterol [Symbicort 80-4.5 MCG] 1 inh INH BID 01/19/19 [History] Losartan/Hydrochlorothiazide [Losartan-HCTZ 50-12.5 MG] 1 tab PO DAILY 01/19/19 [History] Potassium Chloride [Klor-Con 10] 20 meq PO DAILY 01/19/19 [History] amLODIPine Besylate [Norvasc] 5 mg PO DAILY 01/19/19 [History] Rosuvastatin Calcium 20 mg PO DAILY 02/20/20 [History] methocarbamoL [Robaxin] 500 mg PO TID 10 Days #30 tab 02/20/20 [Rx] predniSONE [Prednisone] 50 mg PO DAILY 4 Days #4 tablet 02/20/20 [Rx] traMADol HCl [Tramadol HCl] 50 mg PO Q6H PRN 02/20/20 [History] Past Medical History HEENT History: Reports: None Cardiovascular History: Reports: High Cholesterol, Hypertension Respiratory History: Reports: COPD Gastrointestinal History: Reports: None Genitourinary History: Reports: None Musculoskeletal History: Reports: Gout Other Musculoskeletal History: degenerative disc to spine Neurological History: Reports: None Psychiatric History: Reports: None Endocrine/Metabolic History: Reports: None Hematologic History: Reports: None Immunologic History: Reports: None Oncologic (Cancer) History: Reports: None Dermatologic History: Reports: None - Infectious Disease History Infectious Disease History: Reports: Shingles - Past Surgical History Head Surgeries/Procedures: Reports: None HEENT Surgical History: Reports: Tonsillectomy Cardiovascular Surgical History: Reports: None GI Surgical History: Reports: Hernia Repair/Other Male Surgical History: Reports: None Endocrine Surgical History: Reports: None Neurological Surgical History: Reports: None Musculoskeletal Surgical History: Reports: None Oncologic Surgical History: Reports: None Dermatological Surgical History: Reports: None Social & Family History - Family History Family Medical History: Noncontributory - Tobacco Use Smoking Status *Q: Former Smoker Used Tobacco, but Quit: Yes Month/Year Tobacco Last Used: 2 - Caffeine Use Caffeine Use: Reports: Soda - Recreational Drug Use Recreational Drug Use: Yes ED ROS GENERAL - Review of Systems Review Of Systems: See Below Constitutional: Reports: No Symptoms. Denies: Fever, Chills HEENT: Reports: No Symptoms Respiratory: Reports: No Symptoms Cardiovascular: Reports: No Symptoms GI/Abdominal: Reports: No Symptoms. Denies: Abdominal Pain, Constipation, Nausea, Vomiting : Reports: No Symptoms. Denies: Dysuria Musculoskeletal: Reports: Back Pain. Denies: Neck Pain Skin: Reports: No Symptoms. Denies: Rash, Erythema Neurological: Reports: No Symptoms. Denies: Headache, Numbness, Tingling, Weakness Psychiatric: Reports: No Symptoms ED EXAM, GENERAL - Physical Exam Exam: See Below Exam Limited By: No Limitations General Appearance: Alert, WD/WN Head: Atraumatic, Normocephalic Neck: Normal Inspection, Supple, Non-Tender, Full Range of Motion Respiratory/Chest: No Respiratory Distress, Lungs Clear, Normal Breath Sounds, Chest Non-Tender Cardiovascular: Normal Peripheral Pulses, Regular Rate, Rhythm, No Murmur Peripheral Pulses: 2+: Radial (L) GI/Abdominal: Soft, Non-Tender Back Exam: Normal Inspection, Muscle Spasm Extremities: Normal Inspection, Normal Range of Motion, Non-Tender, Normal Capillary Refill Neurological: Alert, Oriented, Normal Cognition, No Motor/Sensory Deficits Psychiatric: Normal Affect, Normal Mood Skin Exam: Warm, Dry, Intact, Normal Color Course - Vital Signs Text/Narrative:: 1723 The patient was evaluated in the emergency department the patient was given Norflex 60 mg IM as well as Decadron 10 mg IM and morphine 4 mg IM. 1750 The patient is having relief with his medications pain from a 23/03 to a 11/17, the patient will be discharged home, the patient will be given prednisone 50 mg once a day for 5 days, Robaxin 500 mg 3 times a day for 10 days. The patient will continue his current pain medications as given by Dr. alfonso. He is also to follow-up with Dr. alfonso within the next week. The patient is to return to the emergency department sooner if worse or any problems. Last Recorded V/S: Last Vital Signs Temp 35.9 C L 02/20/20 17:47 Pulse 64 02/20/20 17:47 Resp 16 02/20/20 17:47 BP 151/82 H 02/20/20 17:47 Pulse Ox 96 02/20/20 17:47 - Orders/Labs/Meds Meds: Medications Discontinued Medications Generic Name Dose Route Start Last Admin Trade Name Zebq PRN Reason Stop Dose Admin Cyclobenzaprine HCl 1 packet 02/20/20 17:37 Take Home: Cyclobenzaprine 10 Mg, 4 Tab Pack PO 02/20/20 17:38 ONETIME ONE Dexamethasone 10 mg 02/20/20 17:16 02/20/20 17:27 Dexamethasone IM 02/20/20 17:17 10 mg ONETIME ONE Administration Morphine Sulfate 4 mg 02/20/20 17:17 02/20/20 17:24 Morphine IM 02/20/20 17:18 4 mg ONETIME ONE Administration Orphenadrine Citrate 60 mg 02/20/20 17:14 02/20/20 17:23 Norflex IM 02/20/20 17:15 60 mg ONETIME ONE Administration Prednisone 1 packet 02/20/20 17:36 Take Home: Prednisone 20 Mg, 2 Tab Pack PO 02/20/20 17:37 ONETIME ONE Departure - Departure Time of Disposition: 17:50 Disposition: Home, Self-Care 01 Condition: Good Clinical Impression: Sciatica of right side, Lumbar pain - Discharge Information *PRESCRIPTION DRUG MONITORING PROGRAM REVIEWED*: Not Applicable *COPY OF PRESCRIPTION DRUG MONITORING REPORT IN PATIENT MARGARITA: Not Applicable Prescriptions: predniSONE [Prednisone] 50 mg PO DAILY 4 Days #4 tablet methocarbamoL [Robaxin] 500 mg PO TID 10 Days #30 tab Referrals: Alex Alfonso MD [Primary Care Provider] - Forms: ED Department Discharge Additional Instructions: Rest Warm moist heat off-and-on frequently Prednisone 50 mg once a day for 5 days Robaxin 500 mg 3 times a day for 10 days Continue other pain medication Follow-up with Dr. Alfonso this coming week Return to emergency department sooner if worse or any problems Sepsis Event Note (ED) - Evaluation Sepsis Screening Result: No Definite Risk - Focused Exam Vital Signs: Vital Signs Temp Pulse Resp BP Pulse Ox 02/20/20 17:47 35.9 C L 64 16 151/82 H 96 02/20/20 17:13 36.3 C 68 18 164/85 H 97 - Problem List & Annotations (1) Sciatica of right side SNOMED Code(s): 69137693 Code(s): M54.31 - SCIATICA, RIGHT SIDE Status: Acute Priority: Medium Current Visit: No (2) Lumbar pain SNOMED Code(s): 294086310 Code(s): M54.5 - LOW BACK PAIN Status: Acute Priority: Medium Current Visit: Yes - Problem List Review Problem List Initiated/Reviewed/Updated: Yes - Assessment/Plan Plan: The patient's past medical history, past social history, past surgical history and past medical history is reviewed see the nursing notes for details
[2020-02-20] MEDS: Morphine 4 MG/ML VIAL IM ONE (17:24)
[2020-02-20] MEDS: Dexamethasone 4 MG/ML SDV IM ONE (17:27)
[2020-02-20] MEDS: Take Home: Cyclobenzaprine 10 MG Tab, 4 Tab Pack PO ONE (17:56)
[2020-02-20] MEDS: Take Home: predniSONE 20 MG, 2 Tab Pack PO ONE (17:57)
== END 2020-02-20 18:15 | disposition home or self-care (01) ==
LOC: CC.ED 16:50
DX: M54.41 Lumbago with sciatica, right side (principal); I10 Essential (primary) hypertension; E78.00 Pure hypercholesterolemia, unspecified; J44.9 Chronic obstructive pulmonary disease, unspecified; M10.9 Gout, unspecified; Z87.891 Personal history of nicotine dependence; Z79.899 Other long term (current) drug therapy
CPT/HCPCS: 96372; 99283; A9270-GY; J1100; J2270; J2360; J7512

== ENCOUNTER → 2022-09-28 | Day surgery (SDC) | payer OTHER ==
[~2022-09-28] MED LIST changes: +Ketamine 200 MG/20 ML MDV ONE; -Propofol 200 MG/20 ML SDV IV ONE; +Propofol 200 MG/20 ML SDV ONE; +fentaNYL 50 MCG/ML SDV ONE
== END ==
LOC: CC.SDS 06:46
PROVIDERS: ATTEND Family Medicine
DX: Z12.11 Encounter for screening for malignant neoplasm of colon (principal); K57.30 Diverticulosis of large intestine without perforation or abscess without bleeding; J44.9 Chronic obstructive pulmonary disease, unspecified; I10 Essential (primary) hypertension; Z86.010 Personal history of colon polyps; Z79.899 Other long term (current) drug therapy; Z87.19 Personal history of other diseases of the digestive system; Z87.891 Personal history of nicotine dependence
CPT/HCPCS: 00812; J2704; J3010; J3490; J7120